=== PATIENT | female | born 1980 | race Caucasian/White ===

== ENCOUNTER 2017-06-15 15:07 | Inpatient (IN) ==
[2017-06-15] MEDS ORDERED: *HR* HYDROmorphone 2 MG/ML SYRINGE IVP PRN (16:45)
[2017-06-15] MEDS ORDERED: Ondansetron 4 MG/2 ML VIAL IVP PRN (16:47)
[2017-06-15] MEDS ORDERED: *HR* Promethazine 25 MG/ML VIAL IVP PRN ×2 (16:48→22:46)
[2017-06-15] MEDS ORDERED: Ringers Solution, Lactated 500 ML IVC ONE (16:55)
[2017-06-15] MEDS: Ringers Solution, Lactated 1,000 ML IVC SCH (18:45)
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
--- NOTE | 2017-06-15 21:45 | Anesthesia Evaluation PreOp ---
Date of Encounter: 06/15/17 Time of Encounter: 22:43 - Past History Planned Operation: lap magaly Cardiac History: HTN, Other (chronic anmeia) Pulmonary History: Snore MOLD RUNNER History: Other (anxiety/depression) Other Medical History: Renal (stones), GERD, Other (follicular lymphoma, cholelithiasis chronic) Anesthesia History: No Prior Anesthetic Complications, Past Anesthesia (pnl l breast, exp celiotomy, r foot, r femur) Test: Negative Alcohol Use: occasionally Drug use: none Medications and Allergies Esomeprazole Magnesium [Nexium] 40 mg PO DAILY 01/31/16 [History] FLUoxetine HCl [Sarafem] 10 mg PO DAILY 01/31/16 [History] Losartan Potassium [Cozaar] 100 mg PO DAILY 01/31/16 [History] Loratadine [Claritin] 10 mg PO DAILY #30 capsule 02/02/17 [Rx] Ondansetron HCl [Zofran] 8 mg PO Q8H PRN 06/15/17 [History] Allergies No Known Allergies Allergy (Verified 05/07/17 10:31) - Meds/Allergy Pre-op Review Medications Reviewed: Yes Allergies Reviewed: Yes Beta Blockers on Current Med List: No Anesthesia Results - Labs Laboratory Tests 01/29/17 06/14/17 13:07 12:38 Hgb 13.1 Hct 40.1 Plt Count 268 Sodium 138 Potassium 3.7 Creatinine 0.78 Anesthesia Exam Vital Signs/O2 Sat/Glucose, Most Current Temp Pulse Resp BP Pulse Ox 06/15/17 19:48 98.0 F 67 16 111/74 100 Height: 1.7 Weight: 102 NPO (# of Hours): >8 - HEENT Pupil (Motor): Pupils equal, EOMI Mallampati: II Teeth: Normal Oral Opening: Greater than 3 (good underbite) - MOLD RUNNER LOC: Oriented MOLD RUNNER Motor: Normal RUE, Normal LUE, Normal RLE, Normal LLE, Normal Face MOLD RUNNER Sensory: Normal: RUE, LUE, RLE, LLE, Face - Cardiac Rhythm: Regular Murmur: None - Pulmonary Breath Sounds: bilateral Clear Respiratory Effort: Symmetrical Anesthesia Assess/Plan ASA Score: 2 Modified [place] Scale for Level of Consciousness: Cooperative, oriented, and tranquil Anesthetic Plan: General Monitoring Plan: Standard Monitors Recovery Plan: PACU
[2017-06-15] MEDS ORDERED: *HR* Midazolam HCl 2 MG/2 ML VIAL ONE (21:52)
[2017-06-15] MEDS ORDERED: *HR* FentaNYL (PF) 100 MCG/2 ML VIAL ONE ×2 (21:52→23:33)
[2017-06-15] MEDS ORDERED: *HR* Propofol 200 MG/20 ML VIAL IVP ONE (21:52)
[2017-06-15] MEDS ORDERED: Dexamethasone 4 MG/ML VIAL ONE (21:54)
[2017-06-15] MEDS ORDERED: Ondansetron 4 MG/2 ML VIAL ONE (21:54)
[2017-06-15] MEDS ORDERED: *HR* Rocuronium Bromide 50 MG/5 ML VIAL ONE ×2 (21:54→23:58)
[2017-06-15] MEDS ORDERED: Lidocaine -MPF 2% 2 ML VIAL ONE (21:54)
[2017-06-15] MEDS ORDERED: Bupivacaine/EPI 1:200k 0.25%PF 10 ML VIAL INFILT ONE (22:14)
[2017-06-15] MEDS ORDERED: Ketorolac 30 MG/ML VIAL ONE (23:28)
[2017-06-16] MEDS ORDERED: Neostigmine Methylsulfate 3 MG/3 ML SYRINGE ONE (00:23)
[2017-06-16] MEDS ORDERED: Ringers Solution, Lactated 500 ML IVC ONE ×3 (00:47→14:45)
[2017-06-16] MEDS ORDERED: Acetaminophen IV 1,000 MG/100 ML INFUS..BTL IVPB ONE (00:47)
[2017-06-16] MEDS: *HR* HYDROmorphone (PF) 1 MG/ML SYRINGE IVP PRN ×6 (00:53→23:24)
--- NOTE | 2017-06-16 00:59 | Operative Note ---
Date of procedure: 06/16/17 Pre-op diagnosis: cholecystitis, cholelithiasis Post-op diagnosis: same Procedure: laparoscopic cholecystectomy Complications: none apparent Anesthesia: GETA Local Anesthetics: 0.25% Sensorcaine HCL with Epinephrine 1:200,000 SubQ (cc) ( 20mL) Surgeon: Toro Escoto Estimated blood loss (cc): 10 IV fluids (cc): 700 Specimen: gallbladder Condition: stable Disposition: PACU Procedure in Detail: The patient was brought to the operating room where she was placed supine upon the operating room table. The patient was appropriately identified as to person and procedure. The accuracy of this information was confirmed by the procedure team. The patient was then intubated and anesthetized under the supervision of Dr. Guillermo Stanton. The abdomen was prepped and draped in usual sterile fashion. Due to her history of previous open celiotomy for mesenteric lymph node biopsy, the initial laparoscopic approach was in the right upper quadrant, midclavicular line. Just caudal to the costal margin, several milliliters of 0.25% bupivacaine with 1-200,000 epinephrine was infiltrated. A small transverse incision was made. A 5 mm Xcel port was established. The rigid laparoscope was placed within the obturator to visualize passage through the layers of the anterior abdominal wall. Once abdominal cavity was accessed, the obturator was replaced by the rigid laparoscope. The abdomen was insufflated with gaseous carbon dioxide. There was no obvious visible injury from placing the port. There was a small segment of omentum adherent to the anterior abdominal wall but these adhesions would be easily circumvented. Under direct visualization a suprapubic port was placed. The rigid laparoscope was then shifted to this location to visualize placement of the remaining ports along the right costal margin in the subxiphoid and anterior axillary line. All port sites were infiltrated with bupivacaine with epinephrine. The gallbladder was grasped and retracted. Inflammation was noted near the infundibulum of the gallbladder. The duodenum was mobilized away from the infundibulum and dissection proceeded to identify the cystic duct. The cystic duct was skeletonized and clipped. The cystic duct was divided with the aid of an Ethicon harmonic shobha. The cystic artery was then identified, clipped twice proximally, once distally and divided. The gallbladder was dissected from the liver bed using the Ethicon harmonic shobha. Once from the liver bed, the gallbladder was placed in an endoscopic pouch and removed through the supraumbilical port. Several large stones were evident within the gallbladder. The specimen was collected and sent to pathology. The liver bed was inspected for adequate hemostasis. Once this was assured, the pneumoperitoneum was evacuated, the instrumentation removed. The fascia of the supraumbilical port was closed with an interrupted [id number] of 0 Vicryl using S retractors. The port sites were closed with subcuticular 4-0 Vicryl. The incisions were sealed with Dermabond dermal adhesive. The patient was taken to recovery in stable condition. Needle, sponge, and instrument counts were correct at the close of the case. Total volume of 0.25% bupivacaine with 1-200,000 units epinephrine used during this procedure, 20 mL.
--- NOTE | 2017-06-16 01:18 | Anesthesia Evaluation Post Op ---
Date of Encounter: 06/16/17 Time of Encounter: 01:18 - Vital Signs Vital Signs: Vital Signs/O2 Sat/Glucose, Most Current Temp Pulse Resp BP Pulse Ox 06/16/17 01:13 97.1 F L 60 16 112/65 100 06/16/17 01:03 61 16 110/67 97 06/16/17 00:53 76 16 112/71 96 06/16/17 00:43 97.7 F 95 14 130/47 98 - Lungs Lungs: Clear Ascult./Percussion - Airway Airway: Non-obstructed - Cardiovascular Regular Rate - Mental Status Mental Status: Alert & Oriented, Answers Appropriately - Pain Pain Scale: 2 - Nausea Vomiting Nausea Vomiting: Not Present - Hydration Hydration: NPO - Discharge PostOp Status: Transfer Patient to floor
[2017-06-16] MEDS: Ringers Solution, Lactated 1,000 ML IVC SCH ×4 (01:25→22:15)
[2017-06-16] MEDS ORDERED: *HR* HYDROmorphone (PF) 1 MG/ML SYRINGE IVP PRN (01:34)
[2017-06-16] MEDS ORDERED: Acetaminophen 325 MG TABLET PO PRN (01:34)
[2017-06-16] MEDS: Ondansetron 4 MG/2 ML VIAL IVP PRN ×3 (01:52→13:45)
[2017-06-16] MEDS ORDERED: *HR* HYDROmorphone (PF) 1 MG/ML SYRINGE IVP ONE (02:33)
[2017-06-16] MEDS: *HR* OxyCODONE/APAP 5/325 TABLET PO PRN ×3 (02:58→17:27)
[2017-06-16 13:45] LABS: Alanine Aminotransferase 35 Units/L (0-55); Albumin 3.5 g/dL (3.5-5.0); Alkaline Phosphatase 113 Units/L (38-126); Aspartate Amino Transferase 37 Units/L (5-34); BUN/Creatinine Ratio 14 (6-26); Blood Urea Nitrogen 11 mg/dL (7-20); Calcium 9.2 mg/dL (8.6-10.8); Carbon Dioxide 22 mEq/L (19-29); Chloride 107 mEq/L (98-109); Globulin 3.6 g/dL (2.4-3.5); Glucose 124 mg/dL (70-99); Osmolality,Calculated 283 (280-300); Potassium 4.3 mEq/L (3.5-4.5); Sodium 136 mEq/L (136-145); Total Protein 7.1 g/dL (6.0-8.3); eGFR For African Americans > 60 (> 60); eGFR For Non-African Americans > 60 (> 60)
[2017-06-16 13:48] LABS: Bilirubin,Total 0.8 mg/dL (0.2-1.2)
[2017-06-16 13:50] LABS: Basophils % 0.1 %; Hematocrit 39.4 % (35.3-44.9); Hemoglobin 12.9 g/dL (11.5-15.4); Immature Granulocytes % 0.3 % (0-4); Lymphocytes % 6.8 %; Mean Corpuscular HGB Conc 32.7 g/dL (31.6-35.5); Mean Corpuscular Hemoglobin 27.7 pg (28.0-33.3); Mean Corpuscular Volume 84.7 fL (83.0-100.0); Mean Platelet Volume 10.2 fL (9.4-12.4); Monocytes # 0.7 K/mcL (0.0-1.3); Monocytes % 4.9 %; Neutrophils # 12.9 K/mcL (1.6-8.9); Platelet Count 265 K/mcL (140-400); Red Blood Count 4.65 M/mcL (3.82-4.97); Red Cell Distribution Width 12.8 % (11.5-14.5); Segmented Neutrophils % 87.9 %
[2017-06-16] MEDS ORDERED: Ketorolac 30 MG/ML VIAL IVP ONE (14:39)
--- NOTE | 2017-06-16 15:10 | General Surgery Progress Note ---
Date of Encounter: 06/16/17 Time of Encounter: 15:05 Subjective Narrative: General Surgery - post op Patient complaining of right flank pain and "spasms" Patient has been afebrile, currently 98.1, pulse 67, respirations 14, blood pressure 130/78. Lungs: Clear to auscultation, moderately good inspiratory effort Cardiac: Regular rate Abdomen: Port sites clean and dry; tenderness right upper quadrant extending to the right flank as expected. Active bowel sounds Tolerating diet, nausea is improved from preoperative state Urine output: 625 mL since surgery Laboratories: White count 14.7, neutrophils elevated to 12.9% - likely reaction to surgery Hemoglobin 12.9, hematocrit 39.4, platelet count 265,000 Electrolytes, BUN, creatinine within normal limits. Total bili 0.8; AST 37, alkaline phosphatase 113, ALT 35. Preoperative alkaline phosphatase 139. Impression: Acute cholecystitis cholelithiasis - status post laparoscopic cholecystectomy Acceptable postoperative state with postoperative right upper quadrant and right flank pain. We will trial Toradol. Also provide additional fluid bolus for symptomatic control of the patient's complaints Objective Vital Signs - Last 8 Hours Temp Pulse Resp BP Pulse Ox 06/16/17 11:54 98.1 F 67 14 130/78 95 Intake and Output 06/15/17 06/16/17 06/16/17 23:59 07:59 15:59 Intake Total 500 / 500 1739 / 1739 601 / 601 Output Total 0 / 0 10 625 / 625 Balance 500 / 500 1729 / 1729 -24 / -24 Intake: IV Fluids 500 / 500 1739 / 1739 361 / 361 Lactated Ringers 1,000 ML 500 / 500 1639 / 1639 361 / 361 @ 125 mls/hr IVC .Q8H [facility] Rx#:[id number] Ofirmev 1,000 mg/100 ml 1 100 / 100 ,000 mg In 100 ml @ 400 mls/hr IVPB ONCE ONE Rx#: [id number] Oral 0 / 0 240 / 240 Output: Urine 0 / 0 625 / 625 Estimated Blood Loss Other: Meal NPO Lunch Percent of Meal Consumed 0% 5% Weight 102.512 kg - Labs 06/16/17 13:18 06/16/17 13:18 Diabetes panel 06/16/17 Range/Units 13:18 Sodium 136 (136-145) mEq/L Potassium 4.3 (3.5-4.5) mEq/L Chloride 107 (98-109) mEq/L Carbon Dioxide 22 (19-29) mEq/L BUN 11 (7-20) mg/dL Creatinine 0.78 (0.57-1.11) mg/dL Glucose 124 H (70-99) mg/dL Calcium 9.2 (8.6-10.8) mg/dL AST 37 H (5-34) Units/L ALT 35 (0-55) Units/L Alkaline Phosphatase 113 (38-126) Units/L Albumin 3.5 (3.5-5.0) g/dL Calcium panel 06/16/17 Range/Units 13:18 Calcium 9.2 (8.6-10.8) mg/dL Albumin 3.5 (3.5-5.0) g/dL Pituitary panel 06/16/17 Range/Units 13:18 Sodium 136 (136-145) mEq/L Potassium 4.3 (3.5-4.5) mEq/L Chloride 107 (98-109) mEq/L Carbon Dioxide 22 (19-29) mEq/L BUN 11 (7-20) mg/dL Creatinine 0.78 (0.57-1.11) mg/dL Glucose 124 H (70-99) mg/dL Calcium 9.2 (8.6-10.8) mg/dL Adrenal panel 06/16/17 Range/Units 13:18 Sodium 136 (136-145) mEq/L Potassium 4.3 (3.5-4.5) mEq/L Chloride 107 (98-109) mEq/L Carbon Dioxide 22 (19-29) mEq/L BUN 11 (7-20) mg/dL Creatinine 0.78 (0.57-1.11) mg/dL Glucose 124 H (70-99) mg/dL Calcium 9.2 (8.6-10.8) mg/dL Total Bilirubin 0.8 D (0.2-1.2) mg/dL AST 37 H (5-34) Units/L ALT 35 (0-55) Units/L Alkaline Phosphatase 113 (38-126) Units/L Albumin 3.5 (3.5-5.0) g/dL - VTE Documentation of Mechanical Device: Intermittent pneumatic compression device Consult Discharge Plan - Plan Referrals: Kofi Viera MD [Primary Care Provider] - Toro Escoto MD [Non-Partnered Physician] -
[2017-06-17] MEDS: *HR* HYDROmorphone (PF) 1 MG/ML SYRINGE IVP PRN ×7 (02:25→23:48)
[2017-06-17 03:37] LABS: Basophils % 0.2 %; Eosinophils % 0.3 %; Hematocrit 35.6 % (35.3-44.9); Hemoglobin 11.7 g/dL (11.5-15.4); Immature Granulocytes % 0.3 % (0-4); Lymphocytes # 1.5 K/mcL (0.6-4.6); Lymphocytes % 13.2 %; Mean Corpuscular HGB Conc 32.9 g/dL (31.6-35.5); Mean Corpuscular Hemoglobin 28.3 pg (28.0-33.3); Mean Corpuscular Volume 86.2 fL (83.0-100.0); Mean Platelet Volume 10.5 fL (9.4-12.4); Monocytes # 0.9 K/mcL (0.0-1.3); Monocytes % 7.7 %; Neutrophils # 8.9 K/mcL (1.6-8.9); Platelet Count 248 K/mcL (140-400); Red Blood Count 4.13 M/mcL (3.82-4.97); Segmented Neutrophils % 78.3 %
[2017-06-17] MEDS ORDERED: *HR* LORazepam 2 MG/ML VIAL IVP ONE (08:18)
[2017-06-17] MEDS ORDERED: Water for inj. (sterile) 10 ML IV ONE (08:38)
[2017-06-17 08:49] LABS: Albumin 3.1 g/dL (3.5-5.0); Albumin/Globulin Ratio 0.9 (1.1-2.2); Bilirubin,Direct 1.1 mg/dL (0.0-0.5); Bilirubin,Indirect 0.9 mg/dL (0.0-1.2); Globulin 3.6 g/dL (2.4-3.5); Total Protein 6.7 g/dL (6.0-8.3)
--- NOTE | 2017-06-17 10:55 | General Surgery Progress Note ---
Date of Encounter: 06/17/17 Time of Encounter: 10:47 Subjective Patient reports: still having pain Narrative: General Surgery - POD #1 Patient still experiencing sharp, intermittent, stabbing pains right flank. The pain is severe the patient describes difficulty taking a deep breath. No nausea or vomiting, no fevers or chills afebrile, currently 98.1; pulse 75, respirations 18, blood pressure 138/83. SPO2 on room air 98% Lungs: Clear to auscultation when she is able to take a deep breath Cardiac: Regular rate, no appreciable cardiac Abdomen: Right upper quadrant/right flank tenderness. Remainder of the abdomen soft, without obvious tenderness. Active bowel sounds. Urine output 1425 for the last 24 hours; 1075 mL so far today - urine described as dark orange Laboratories: White count has improved to 11.4, hemoglobin 11.7, hematocrit 35.6 ; platelet count 248,000. LFTs significantly abnormal - bilirubin 2.0, direct 1.1; AST 111, ALT 75; alkaline phosphatase 113 Impression: Postoperative day 1, status post laparoscopic cholecystectomy Persistent sharp, intermittent, stabbing pains right upper quadrant, right flank with abnormal LFTs. Possible ureterolithiasis versus common duct stone versus complication from recent laparoscopic cholecystectomy Plan: CT abd/pelvis IV pain control Consult Dr Bai for ERCP if hepatobiliary etiology continues to be suspected. Objective Vital Signs - Last 8 Hours Temp Pulse Resp BP Pulse Ox 06/17/17 06:54 98.1 F 75 18 138/83 98 06/17/17 04:17 98.3 F 83 13 160/90 99 Intake and Output 06/16/17 06/17/17 06/17/17 23:59 07:59 15:59 Intake Total 1120 / 1120 360 / 360 738 / 738 Output Total 800 / 800 1075 / 1075 Balance 320 / 320 -715 / -715 738 / 738 Intake: IV Fluids 1000 / 1000 738 / 738 Lactated Ringers 1,000 ML 1000 / 1000 738 / 738 @ 75 mls/hr IVC .[id number] [facility] Rx#:[id number] Oral 120 / 120 360 / 360 Output: Urine 800 / 800 1075 / 1075 Other: Meal Dinner Percent of Meal Consumed 0% Weight 104.78 kg Patient Weight 06/17/17 23:59 Weight 104.78 kg - Labs 06/17/17 03:01 06/16/17 13:18 Diabetes panel 06/16/17 06/17/17 Range/Units 13:18 04:53 Sodium 136 (136-145) mEq/L Potassium 4.3 (3.5-4.5) mEq/L Chloride 107 (98-109) mEq/L Carbon Dioxide 22 (19-29) mEq/L BUN 11 (7-20) mg/dL Creatinine 0.78 (0.57-1.11) mg/dL Glucose 124 H (70-99) mg/dL Calcium 9.2 (8.6-10.8) mg/dL AST 37 H 111 H (5-34) Units/L ALT 35 75 H (0-55) Units/L Alkaline Phosphatase 113 113 (38-126) Units/L Albumin 3.5 3.1 L (3.5-5.0) g/dL Calcium panel 06/16/17 06/17/17 Range/Units 13:18 04:53 Calcium 9.2 (8.6-10.8) mg/dL Albumin 3.5 3.1 L (3.5-5.0) g/dL Pituitary panel 06/16/17 Range/Units 13:18 Sodium 136 (136-145) mEq/L Potassium 4.3 (3.5-4.5) mEq/L Chloride 107 (98-109) mEq/L Carbon Dioxide 22 (19-29) mEq/L BUN 11 (7-20) mg/dL Creatinine 0.78 (0.57-1.11) mg/dL Glucose 124 H (70-99) mg/dL Calcium 9.2 (8.6-10.8) mg/dL Adrenal panel 06/16/17 06/17/17 Range/Units 13:18 04:53 Sodium 136 (136-145) mEq/L Potassium 4.3 (3.5-4.5) mEq/L Chloride 107 (98-109) mEq/L Carbon Dioxide 22 (19-29) mEq/L BUN 11 (7-20) mg/dL Creatinine 0.78 (0.57-1.11) mg/dL Glucose 124 H (70-99) mg/dL Calcium 9.2 (8.6-10.8) mg/dL Total Bilirubin 0.8 D 2.0 H D (0.2-1.2) mg/dL AST 37 H 111 H (5-34) Units/L ALT 35 75 H (0-55) Units/L Alkaline Phosphatase 113 113 (38-126) Units/L Albumin 3.5 3.1 L (3.5-5.0) g/dL - VTE Documentation of Mechanical Device: Intermittent pneumatic compression device Consult Discharge Plan - Plan Referrals: Kofi Viera MD [Primary Care Provider] - Toro Escoto MD [Non-Partnered Physician] -
[2017-06-17] MEDS: Ringers Solution, Lactated 1,000 ML IVC SCH ×2 (11:17→23:49)
--- NOTE | 2017-06-17 15:55 | General Surgery Progress Note ---
Date of Encounter: 06/17/17 Time of Encounter: 15:49 Subjective Patient reports: feels better Narrative: General Surgery - follow up CT abd/pelvis Patient resting much more comfortably in her hospital bed; Remains afebrile and hemodynamically stable. Heart rate has increased to 101 but for the majority of the day 70-83; respiratory rate 15-18 with no complaints of difficulty breathing or pain on inspiration.; Blood pressure stable 122/79 CT - reviewed; endings include: Minor dependent atelectasis bilaterally in the visualized lung field; previous cholecystectomy with minor fluid in the gallbladder fossa of increased density consistent with a postoperative hematoma or seroma; a minor amount of perihepatic and perisplenic ascites also noted. This is suggestive of a bile leak. If the bile leak ceases spontaneously, no intervention is anticipated. However, if the patient's symptoms persist, or the bile leak continues, the patient may benefit from ERCP and biliary stenting. The brittany hepatic and brittany splenic fluid / bile is consistent with the patient's post op symptoms and complaints difficulty breathing due to diaghramatic irritation. Repeat labs in AM; continue pain meds toda/tonight Objective Vital Signs - Last 8 Hours Temp Pulse Resp BP Pulse Ox 06/17/17 12:47 98.2 F 101 15 122/79 93 Intake and Output 06/16/17 06/17/17 06/17/17 23:59 07:59 15:59 Intake Total 1120 / 1120 360 / 360 1001 / 1001 Output Total 800 / 800 1075 / 1075 Balance 320 / 320 -715 / -715 1001 / 1001 Intake: IV Fluids 1000 / 1000 1001 / 1001 Water for inj. (sterile) 1 / 1 10 ML As IV .[facility] Rx#:[id number] Lactated Ringers 1,000 ML 1000 / 1000 1000 / 1000 @ 75 mls/hr IVC .[id number] [facility] Rx#:[id number] Oral 120 / 120 360 / 360 Output: Urine 800 / 800 1075 / 1075 Other: Meal Dinner Percent of Meal Consumed 0% Weight 104.78 kg Patient Weight 06/17/17 23:59 Weight 104.78 kg - Labs 06/17/17 03:01 06/16/17 13:18 Diabetes panel 06/17/17 Range/Units 04:53 AST 111 H (5-34) Units/L ALT 75 H (0-55) Units/L Alkaline Phosphatase 113 (38-126) Units/L Albumin 3.1 L (3.5-5.0) g/dL Calcium panel 06/17/17 Range/Units 04:53 Albumin 3.1 L (3.5-5.0) g/dL Adrenal panel 06/17/17 Range/Units 04:53 Total Bilirubin 2.0 H D (0.2-1.2) mg/dL AST 111 H (5-34) Units/L ALT 75 H (0-55) Units/L Alkaline Phosphatase 113 (38-126) Units/L Albumin 3.1 L (3.5-5.0) g/dL - VTE Documentation of Mechanical Device: Intermittent pneumatic compression device Consult Discharge Plan - Plan Referrals: Kofi Viera MD [Primary Care Provider] - Toro Escoto MD [Non-Partnered Physician] -
[2017-06-17] MEDS: *HR* OxyCODONE/APAP 5/325 TABLET PO PRN ×2 (16:12→20:59)
[2017-06-18] MEDS: *HR* HYDROmorphone (PF) 1 MG/ML SYRINGE IVP PRN ×4 (02:42→14:32)
[2017-06-18 05:52] LABS: Basophils % 0.6 %; Eosinophils # 0.1 K/mcL (0.0-0.6); Eosinophils % 1.5 %; Hematocrit 34.4 % (35.3-44.9); Hemoglobin 11.2 g/dL (11.5-15.4); Immature Granulocytes % 0.3 % (0-4); Lymphocytes # 1.3 K/mcL (0.6-4.6); Lymphocytes % 19.1 %; Mean Corpuscular HGB Conc 32.6 g/dL (31.6-35.5); Mean Corpuscular Hemoglobin 28.4 pg (28.0-33.3); Mean Corpuscular Volume 87.3 fL (83.0-100.0); Mean Platelet Volume 10.1 fL (9.4-12.4); Monocytes # 0.7 K/mcL (0.0-1.3); Monocytes % 10.6 %; Neutrophils # 4.5 K/mcL (1.6-8.9); Platelet Count 209 K/mcL (140-400); Red Blood Count 3.94 M/mcL (3.82-4.97); Red Cell Distribution Width 13.2 % (11.5-14.5); Segmented Neutrophils % 67.9 %
[2017-06-18 06:03] LABS: Albumin 2.7 g/dL (3.5-5.0); Albumin/Globulin Ratio 0.7 (1.1-2.2); Bilirubin,Indirect 2.2 mg/dL (0.0-1.2); Globulin 3.8 g/dL (2.4-3.5); Total Protein 6.5 g/dL (6.0-8.3)
[2017-06-18 06:04] LABS: Bilirubin,Direct 4.3 mg/dL (0.0-0.5); Bilirubin,Total 6.5 mg/dL (0.2-1.2)
--- NOTE | 2017-06-18 11:27 | Gastroenterology Consult Note ---
<Eva Olivera - Last Filed: 06/18/17 14:31> Date of Encounter: 06/18/17 Time of Encounter: 12:40 - Assessment and plan (1) Bile leak, postoperative Current Visit: Yes Status: Acute Assessment and plan: ERCP with stent placement. - Time Spent With Patient Total time spent is greater than 50% in coordination of care (as documented) at patient's floor/unit and/or counseling patient: less than 15 minutes GI History of Present Illness - Data of Consult Patient: new to practice Consult date: 06/18/17 Requesting Physician: Toro Escoto - Consult Narrative Reason for consult: bile leak s/p magaly History of present illness: Ms. Tellez is a 36 year old female patient of Dr. Pelaez that was admitted with a 3 week hx of diarrhea, nausea, anorexia and progressive malaise. Dx of biliary colic, patient underwent cholecystectomy. Post-op imaging indicates possible bile leak with continuing symptoms, GI consulted for ERCP with stent for suspected bile leak. Patient states she has had symptoms for several weeks, diarrhea following meals, nausea and anorexia. She had the GB removed 2 days ago but remains very symptomatic, with RUQ abdominal discomfort, she noticed herself becoming jaundiced since the surgery as well. Colonoscopy: None noted EGD: None noted Past Med Surg Social Fam HX - Past Medical History Medical history: GERD, hypertension, other Psychiatric history: anxiety, depression - Social History Smoking Status: Unknown if ever smoked Smokeless Tobacco Status: No Alcohol use: occasionally Drug use: none - Gastrointestinal NSAID use: None noted Anticoagulation Use: None noted Number of BM Per Day: daily Gastrointestinal: Present: abdominal pain - Constitutional Constitutional: as per HPI - EENT Eyes: Yellow Discoloration Ears: Present: as per HPI Nose, mouth and throat: Present: as per HPI - Cardiovascular Cardiovascular ROS: Present: as per HPI - Respiratory Respiratory IM: Present: as per HPI - Neurological ROS Neurological GI: Present: as per HPI - Hematologic/Lymphatic Hematologic/Lymphatic pediatric: Present: as per HPI - Musculoskeletal Musculoskeletal ROS GI: Present: as per HPI - Integumentary Integumentary GI: Present: jaundice - Psychiatric ROS Psychiatric GI: Present: as per HPI - Endocrine Endocrine IM: Present: as per HPI - Constitutional Vitals: Temp Pulse Resp BP Pulse Ox 98.2 F 96 16 134/84 96 06/18/17 10:47 06/18/17 10:47 06/18/17 10:47 06/18/17 10:47 06/18/17 10:47 General appearance: Present: cooperative, A&O X 3, no acute distress, answers questions appropriately - Head Head exam: Present: atraumatic, normocephalic - Eye Eye exam: Present: scleral icterus - ENT ENT exam: Present: mucous membranes moist - Neck Neck exam general surgery: Present: normal inspection, trachea midline - Respiratory Respiratory exam: Present: CTAB - Cardiovascular Cardiovascular exam: Present: RRR, +S1, +S2 - GI/Abdominal GI/Abdominal exam: Present: soft, tenderness, no peritoneal signs Additional comments: well adhered lap magaly sites - Rectal Rectal exam: Present: deferred - Extremities Exam Extremities exam: Present: warm - Neurological Exam Neurological exam: Present: no focal deficits - Psychiatric Psychiatric exam: Present: normal affect, normal mood - Skin Additional comments: jaundice Results - Labs CBC & Chem 7: 06/18/17 05:32 06/16/17 13:18 Labs: Last Result Calcium 9.2 mg/dL (8.6-10.8) 06/16/17 13:18 Entire Visit Hgb 11.2 g/dL (11.5-15.4) L 06/18/17 05:32 Hct 34.4 % (35.3-44.9) L 06/18/17 05:32 Total Bilirubin 6.5 mg/dL (0.2-1.2) H D 06/18/17 05:32 AST 169 Units/L (5-34) H 06/18/17 05:32 ALT 193 Units/L (0-55) H 06/18/17 05:32 - Impressions Impressions Abdomen/Pelvis CT 06/17/17 09:31 IMPRESSION: 1. Status post cholecystectomy with small heterogeneous, partially hyperdense fluid collection in the gallbladder fossa likely a postoperative hematoma/seroma. If symptoms persist or progress, nuclear medicine hepatobiliary scintigraphy could be considered to evaluate for bile leak. 2. Small amount of ascites with tiny bubble of intraperitoneal free air likely postsurgical in nature. 3. Other incidental findings include minor dependent atelectasis at the lung bases and an IUD. D/ / Melvin Piper MD / Melvin Piper MD Interpreting Provider: Melvin Piper MD Consult Discharge Plan - Plan Referrals: Kofi Viera MD [Primary Care Provider] - Toro Escoto MD [Non-Partnered Physician] - <Shirley Bai - Last Filed: 06/18/17 17:32> Date of Encounter: 06/18/17 Time of Encounter: 15:00 - Time Spent With Patient Total time spent is greater than 50% in coordination of care (as documented) at patient's floor/unit and/or counseling patient: GI History of Present Illness - Data of Consult Requesting Physician: Toro Escoto - Consult Narrative History of present illness: Ms. Tellez is a 36 year old female - Constitutional Vitals: Temp Pulse Resp BP Pulse Ox 99.5 F 98 16 124/77 95 06/18/17 14:23 06/18/17 14:23 06/18/17 14:23 06/18/17 14:23 06/18/17 14:23 Results - Labs CBC & Chem 7: 06/18/17 05:32 06/16/17 13:18 Labs: Last Result Calcium 9.2 mg/dL (8.6-10.8) 06/16/17 13:18 Entire Visit Hgb 11.2 g/dL (11.5-15.4) L 06/18/17 05:32 Hct 34.4 % (35.3-44.9) L 06/18/17 05:32 Total Bilirubin 6.5 mg/dL (0.2-1.2) H D 06/18/17 05:32 AST 169 Units/L (5-34) H 06/18/17 05:32 ALT 193 Units/L (0-55) H 06/18/17 05:32 - Attending Attestation I examined this patient and my medical decision-making was reviewed with the Resident Physician. I agree with the documented findings, disposition and treatment plan as described except to the extent set forth below. Pt With the status post cholecystectomy now with jaundice. had Stones in the gallbladder, r/u CBD OBSTRUCTION due to stone
--- NOTE | 2017-06-18 12:25 | General Surgery Progress Note ---
Date of Encounter: 06/18/17 Time of Encounter: 12:21 Subjective Patient reports: still having pain (bilirubin and LFTs continue to rise) Narrative: General Surgery - POD #2 - this is a delayed dictation The patient is still complaining of pain though control is much improved with frequent IV administration hydromorphone No fever, maximum temperature 99.0, heart rate 96-104, respirations 16, blood pressure 134/84. Lungs: Clear Abdomen: Soft, active bowel sounds. Port sites clean and dry Laboratories: White count is returning to normal, 6.6; hemoglobin 11.2, hematocrit 34.4, platelet count 209,000 Bilirubin 6.5, with direct 4.3; AST 169, ALT 193, alkaline phosphatase 211 - all values significantly increased from the day before Impression: Obstructive jaundice secondary to common duct stone or intraoperative ductal injury. Dr Bai as been contacted/consulted for ERCP Patient is aware. Objective Vital Signs - Last 8 Hours Temp Pulse Resp BP Pulse Ox 06/18/17 10:47 98.2 F 96 16 134/84 96 06/18/17 09:05 120/85 06/18/17 06:56 99.0 F 101 16 104/66 94 Intake and Output 06/17/17 06/18/17 06/18/17 23:59 07:59 15:59 Intake Total 2320 / 2320 0 / 0 Output Total 2250 / 2250 1050 / 1050 Balance 70 / 70 -1050 / -1050 Intake: IV Fluids 1000 / 1000 Lactated Ringers 1,000 ML 1000 / 1000 @ 75 mls/hr IVC .[id number] [facility] Rx#:[id number] Oral 1320 / 1320 0 / 0 Output: Urine 2250 / 2250 1050 / 1050 Other: Meal Dinner NPO NPO Percent of Meal Consumed 25% Weight 105.097 kg Blood Glucose* 107 95 Patient Weight 06/18/17 23:59 Weight 105.097 kg - Labs 06/18/17 05:32 06/16/17 13:18 Diabetes panel 06/18/17 Range/Units 05:32 AST 169 H (5-34) Units/L ALT 193 H (0-55) Units/L Alkaline Phosphatase 211 H (38-126) Units/L Albumin 2.7 L (3.5-5.0) g/dL Calcium panel 06/18/17 Range/Units 05:32 Albumin 2.7 L (3.5-5.0) g/dL Adrenal panel 06/18/17 Range/Units 05:32 Total Bilirubin 6.5 H D (0.2-1.2) mg/dL AST 169 H (5-34) Units/L ALT 193 H (0-55) Units/L Alkaline Phosphatase 211 H (38-126) Units/L Albumin 2.7 L (3.5-5.0) g/dL - VTE Documentation of Mechanical Device: Intermittent pneumatic compression device Consult Discharge Plan - Plan Referrals: Kofi Viera MD [Primary Care Provider] - Toro Escoto MD [Non-Partnered Physician] -
[2017-06-18] MEDS: *HR* OxyCODONE/APAP 5/325 TABLET PO PRN ×2 (12:39→22:43)
--- NOTE | 2017-06-18 18:19 | Anesthesia Evaluation PreOp ---
Date of Encounter: 06/18/17 Time of Encounter: 18:17 - Past History Planned Operation: ERCP Cardiac History: HTN, Other (anemia) Pulmonary History: Denies Any Significant HX LOGGING OPERATIONS INSPECTOR History: Denies Any Significant HX Other Medical History: Renal (stones), GERD, Other (follicular lymphoma) Anesthesia History: No Prior Anesthetic Complications Alcohol Use: occasionally Drug use: none Medications and Allergies Esomeprazole Magnesium [Nexium] 40 mg PO DAILY 01/31/16 [History] FLUoxetine HCl [Sarafem] 10 mg PO DAILY 01/31/16 [History] Losartan Potassium [Cozaar] 100 mg PO DAILY 01/31/16 [History] Loratadine [Claritin] 10 mg PO DAILY #30 capsule 02/02/17 [Rx] Ondansetron HCl [Zofran] 8 mg PO Q8H PRN 06/15/17 [History] Allergies No Known Allergies Allergy (Verified 05/07/17 10:31) - Meds/Allergy Pre-op Review Medications Reviewed: Yes Allergies Reviewed: Yes Beta Blockers on Current Med List: No Anesthesia Results - Labs 06/18/17 05:32 06/16/17 13:18 Anesthesia Exam Last Vital Signs Temp 99.5 F 06/18/17 14:23 Pulse 98 06/18/17 14:23 Resp 16 06/18/17 14:23 BP 124/77 06/18/17 14:23 Pulse Ox 95 06/18/17 14:23 Weight: 105 kg NPO (# of Hours): >> 8 hrs - HEENT Pupil (Motor): Pupils equal, EOMI Mallampati: I Teeth: Normal Oral Opening: Greater than 3 - LOGGING OPERATIONS INSPECTOR LOC: Oriented LOGGING OPERATIONS INSPECTOR Motor: Normal RUE, Normal LUE, Normal RLE, Normal LLE, Normal Face - Cardiac Rhythm: Regular Murmur: None - Pulmonary Breath Sounds: bilateral Clear Respiratory Effort: Symmetrical Anesthesia Assess/Plan ASA Score: 2 Modified [place] Scale for Level of Consciousness: Cooperative, oriented, and tranquil Anesthetic Plan: General Monitoring Plan: Standard Monitors Recovery Plan: PACU
[2017-06-18] MEDS ORDERED: Scopolamine Patch 1.5 MG PATCH.TD72 TD ONE (18:20)
[2017-06-18] MEDS ORDERED: *HR* Propofol 200 MG/20 ML VIAL IVP ONE (18:28)
[2017-06-18] MEDS ORDERED: *HR* FentaNYL (PF) 100 MCG/2 ML VIAL ONE (18:28)
[2017-06-18] MEDS ORDERED: Ondansetron 4 MG/2 ML VIAL ONE (18:28)
[2017-06-18] MEDS ORDERED: *HR* Midazolam HCl 2 MG/2 ML VIAL ONE (18:28)
[2017-06-18] MEDS ORDERED: *HR* Rocuronium Bromide 50 MG/5 ML VIAL ONE (18:28)
[2017-06-18] MEDS ORDERED: Lidocaine -MPF 2% 2 ML VIAL ONE (18:28)
[2017-06-18] MEDS ORDERED: Ringers Solution, Lactated 1,000 ML IVC SCH (18:45)
[2017-06-18] MEDS ORDERED: Indomethacin 50 MG SUPP.RECT RC ONE (19:14)
[2017-06-18] MEDS ORDERED: Dexamethasone 4 MG/ML VIAL ONE (19:28)
[2017-06-18] MEDS ORDERED: *HR* Morphine 2 MG/ML SYRINGE IVP PRN (20:06)
[2017-06-18] MEDS ORDERED: *HR* Promethazine 25 MG/ML VIAL IVP PRN (20:06)
--- NOTE | 2017-06-18 21:02 | Anesthesia Evaluation Post Op ---
Date of Encounter: 06/18/17 Time of Encounter: 21:02 - Vital Signs Vital Signs: Vital Signs/O2 Sat, Most Current Temp Pulse Resp BP Pulse Ox 98 F 104 20 129/82 93 06/18/17 21:01 06/18/17 21:01 06/18/17 21:01 06/18/17 21:01 06/18/17 21:01 - Lungs Lungs: Clear Ascult./Percussion - Airway Airway: Non-obstructed - Cardiovascular Regular Rate - Mental Status Mental Status: Asleep with brisk response to light stimulation - Pain Pain Scale: 0 Pain Scale used: Numeric (1 - 10) - Nausea Vomiting Nausea Vomiting: Not Present - Hydration Hydration: NPO, Has not voided - Discharge PostOp Status: Transfer Patient to floor
[2017-06-18] MEDS ORDERED: Sod Borate/Boric acid/NaCl 118 ML IRRIG.SOLN OP ONE (21:50)
--- NOTE | 2017-06-18 22:02 | Event Note ---
Date of Encounter: 06/18/17 Time of Encounter: 21:15 Called to the OR by Dr Bai during ERCP. on my arrival the ERCP was in progress. Findings include normal-appearing distal common duct, no contrast beyond the mid common bile duct or mid common hepatic duct. Attempts to pass a wire beyond this point failed and on administration of contrast extraluminal contrast was identified. The findings are consistent with occlusion of the mid common bile duct or mid hepatic duct with clip or clips related to recent laparoscopic cholecystectomy. These findings were discussed with the patient's family and ultimately with the patient as she recovered from anesthesia. I have recommended transfer to a [facility], specifically [facility]. The patient was willing to be transferred. [facility] has been contacted. I am currently awaiting a response from the Surgeon prototype assembler electronics regarding this transfer The patient remains afebrile, currently 98; pulse is elevated at 104, respiratory 20, blood pressure 129/82. SPO2 on room air 93-94% The patient is now clinically jaundiced. Total bilirubin known to be 6.5 with a direct of 4.3. Lungs: Clear Abdomen: Soft with minimal tenderness. No obvious intra-abdominal masses or rebound. Impression: Obstructive jaundice secondary to iatrogenic injury to the mid common bile duct or mid common hepatic duct. Likely a clip placed during laparoscopic cholecystectomy is causing this obstruction.
[2017-06-19] MEDS: Ringers Solution, Lactated 1,000 ML IVC SCH ×3 (07:17→08:08)
[2017-06-19 09:40] LABS: Basophils % 0.1 %; Eosinophils % 0.3 %; Hematocrit 34.4 % (35.3-44.9); Hemoglobin 11.2 g/dL (11.5-15.4); Immature Granulocytes % 0.4 % (0-4); Lymphocytes # 0.7 K/mcL (0.6-4.6); Lymphocytes % 8.6 %; Mean Corpuscular HGB Conc 32.6 g/dL (31.6-35.5); Mean Corpuscular Hemoglobin 27.5 pg (28.0-33.3); Mean Corpuscular Volume 84.5 fL (83.0-100.0); Mean Platelet Volume 10.4 fL (9.4-12.4); Monocytes # 0.5 K/mcL (0.0-1.3); Monocytes % 6.7 %; Neutrophils # 6.6 K/mcL (1.6-8.9); Platelet Count 246 K/mcL (140-400); Red Blood Count 4.07 M/mcL (3.82-4.97); Red Cell Distribution Width 13.1 % (11.5-14.5); Segmented Neutrophils % 83.9 %
[2017-06-19 09:41] LABS: Bilirubin,Total 5.6 mg/dL (0.2-1.2)
--- NOTE | 2017-06-19 16:12 | Event Note ---
Date of Encounter: 06/19/17 Time of Encounter: 16:00 Patient is status post laparoscopic cholecystectomy with Dr. Escoto on 2015. She is status post-ERCP with Dr. Bai on 06/18/2017. Postoperative complication includes common bile duct injury. The patient has requested a consult to Dr. Gay for evaluation and treatment. An MRCP has been complete today and reviewed per Dr. Gay. We will plan to give the patient clear liquid diet today and make her nothing by mouth after midnight. Interventional radiology has been consulted for placement of a PTC catheter 06/20/17. Interventional radiologist has been notified per Dr. Gay. The plan has been reviewed with the patient and she is in agreement to proceed with Dr. Gay's recommendations. We will continue to follow and make recommendations for treatment.
--- NOTE | 2017-06-19 18:53 | General Surgery Progress Note ---
Date of Encounter: 06/19/17 Time of Encounter: 14:00 Subjective Patient reports: feels better, pain is less Narrative: General Surgery - POD #3 This a delayed note The patient feels better, pain persists but is diminished. No fevers, chills , nausea or vomiting. At the patient's request, the transfer to [facility] has been delayed. Consultation with Dr Deidra naylor. MRCP completed this afternoon was reviewed with [facility] -Findings include visualization of the left and right hepatic ducts but no visualized common hepatic duct. It appears that the common hepatic duct was resected at the time of the laparoscopic cholecystectomy to the hepatic bifurcation. The common bile duct was not visualized on the MRI but was visualized during the ERCP. These findings were discussed with the patient. On exam the patient appears to be in NAD. The patient has remained afebrile , 98.6, pulse ranging 75-92, respirations 19, blood pressure 113/73. Lungs were clear to auscultation without obvious pain on deep inspiration Abdomen: Soft with minimal right upper quadrant tenderness. Bowel sounds present. A.m. labs: White count 7.9, hemoglobin stable at 11.2, hematocrit 34.4. Differential within normal limits Total bilirubin 5.6 (previously 6.5); AST 86 (previously 169); ALT 151 ( previously 193); alkaline phosphatase 226 (previously 211) Impression/Plan: POD #3 status post laparoscopic cholecystectomy complicated by injury to either the common bile duct or common hepatic duct patient scheduled for percutaneous PTC catheter in AM per Interventional Radiology continue pain control as needed. Repeat labs in AM Objective Vital Signs - Last 8 Hours Temp Pulse Resp BP Pulse Ox 06/19/17 14:50 98.6 F 92 19 113/73 96 06/19/17 10:47 98.4 F 87 16 104/65 94 Intake and Output 06/19/17 06/19/17 06/19/17 07:59 15:59 23:59 Intake Total 480 / 480 1000 / 1000 Output Total 800 / 800 Balance -320 / -320 1000 / 1000 Intake: IV Fluids 1000 / 1000 Lactated Ringers 1,000 ML 1000 / 1000 @ 75 mls/hr IVC .[id number] [facility] Rx#:[id number] Oral 480 / 480 0 / 0 Output: Urine 800 / 800 Other: Meal NPO Weight 105.3 kg Blood Glucose* 79 89 Patient Weight 06/19/17 23:59 Weight 105.3 kg - Labs 06/19/17 08:49 06/16/17 13:18 Diabetes panel 06/19/17 Range/Units 08:49 AST 86 H (5-34) Units/L ALT 151 H (0-55) Units/L Alkaline Phosphatase 226 H (38-126) Units/L Adrenal panel 06/19/17 Range/Units 08:49 Total Bilirubin 5.6 H (0.2-1.2) mg/dL AST 86 H (5-34) Units/L ALT 151 H (0-55) Units/L Alkaline Phosphatase 226 H (38-126) Units/L - VTE Documentation of Mechanical Device: Intermittent pneumatic compression device Consult Discharge Plan - Plan Referrals: Kofi Viera MD [Primary Care Provider] - Toro Escoto MD [Non-Partnered Physician] -
[2017-06-20] MEDS: Ringers Solution, Lactated 1,000 ML IVC SCH (00:13)
[2017-06-20 03:38] LABS: INR 1.3; Prothrombin Time 13.8 Seconds (9.4-12.1)
[2017-06-20 03:45] LABS: BUN/Creatinine Ratio 10 (6-26); Blood Urea Nitrogen 6 mg/dL (7-20); Calcium 8.1 mg/dL (8.6-10.8); Carbon Dioxide 23 mEq/L (19-29); Chloride 108 mEq/L (98-109); Glucose 114 mg/dL (70-99); Osmolality,Calculated 284 (280-300); Potassium 3.2 mEq/L (3.5-4.5); Sodium 138 mEq/L (136-145); eGFR For African Americans > 60 (> 60); eGFR For Non-African Americans > 60 (> 60)
[2017-06-20 03:52] LABS: Bilirubin,Total 5.7 mg/dL (0.2-1.2)
[2017-06-20] MEDS ORDERED: Piperacillin/Tazobactam 3.375 GM in D5% in Water (Mini-Bag+) 100 ML IVPB ONE (10:46)
[2017-06-20] MEDS ORDERED: Heparin 1,000 UNITS/500 mL NS 500 ML ONE (10:53)
[2017-06-20] MEDS ORDERED: 0.9 % Sodium Chloride 500 ML ONE ×2 (11:05→11:21)
[2017-06-20] MEDS: *HR* FentaNYL (PF) 100 MCG/2 ML VIAL IVP PRN ×8 (11:26→12:44)
[2017-06-20] MEDS: *HR* Midazolam HCl 2 MG/2 ML VIAL IVP PRN ×6 (11:26→12:45)
[2017-06-20] MEDS ORDERED: 0.9 % Sodium Chloride 1,000 ML ONE (11:41)
--- NOTE | 2017-06-20 13:17 | IR Procedure Note ---
Date of procedure: 06/20/17 Consent Obtained: Written consent Timeout: Correct patient and procedure verified, Correct site verified, Time out performed, Skin prep completed Local anesthetic: Lidocaine 1% Indications: Bilary injury after cholecystectomy, bile leak Procedure Performed: PTC, internal/external biliary drain placement Site/Technique: Right flank access with accustick. 10fr internal/external drain placed. Results/Findings: Draining well. Leak identified on drain injection. Estimated blood loss (cc): 3 Complications: None; Tolerated procedure well Post Procedure Treatment Plan: Recommend upsizing drain soon, and keep in place for 2-3 months.
--- NOTE | 2017-06-20 14:36 | General Surgery Progress Note ---
Date of Encounter: 06/20/17 Time of Encounter: 14:26 Subjective Patient reports: feels better Narrative: General Surgery - POD #4 Successful placement of 10-Austrian internal/external drain by Steph Ch[facility]ol[facility] Interventional Radiology traversing the injured segment of the biliary tree with the drain extended into the small bowel. Patient is currently well, voicing no complaints Patient is afebrile, 98.3, pulse 74, respirations 14, blood pressure 137/79 The external portion of the drain, attached to a drainage bag, is draining clear, helen bile. Lungs clear abd: soft, non tender with active bowel sounds Plan: allow drainage both internal and external today cap external drain tomorrow allow regular diet repeat labs in AM Objective Vital Signs - Last 8 Hours Temp Pulse Resp BP Pulse Ox 06/20/17 13:24 98.3 F 74 14 137/79 98 06/20/17 12:57 85 16 131/72 97 06/20/17 12:47 85 15 139/82 96 06/20/17 12:42 88 16 136/76 95 06/20/17 12:37 87 17 149/84 95 06/20/17 12:35 87 18 136/69 97 06/20/17 12:30 85 21 133/73 96 06/20/17 12:25 89 23 136/81 96 06/20/17 12:17 88 20 136/73 95 06/20/17 12:13 89 14 140/77 96 06/20/17 12:07 75 20 133/75 100 06/20/17 12:03 80 19 135/79 100 06/20/17 11:57 87 20 143/71 100 06/20/17 11:52 86 19 142/73 98 06/20/17 11:50 85 19 132/73 96 06/20/17 11:42 88 16 116/65 98 06/20/17 11:37 88 19 124/71 96 06/20/17 11:32 77 12 121/69 95 06/20/17 11:27 83 16 123/72 96 06/20/17 11:16 86 13 142/85 06/20/17 06:43 98.7 F 73 16 129/76 94 Intake and Output 06/19/17 06/20/17 06/20/17 23:59 07:59 15:59 Intake Total 1000 / 1000 0 / 0 Output Total 0 / 0 0 / 0 Balance 1000 / 1000 0 / 0 Intake: IV Fluids 1000 / 1000 Lactated Ringers 1,000 ML 1000 / 1000 @ 75 mls/hr IVC .[id number] [facility] Rx#:[id number] Oral 0 / 0 0 / 0 Output: Urine 0 / 0 Wound Drainage 0 / 0 Right Upper Abdomen 0 / 0 Other: Meal NPO Percent of Meal Consumed 0% Weight 107.501 kg Blood Glucose* 89 110 Patient Weight 06/20/17 23:59 Weight 107.501 kg - Labs 06/19/17 08:49 06/20/17 03:08 Diabetes panel 06/20/17 06/20/17 Range/Units 03:08 03:08 Sodium 138 (136-145) mEq/L Potassium 3.2 L (3.5-4.5) mEq/L Chloride 108 (98-109) mEq/L Carbon Dioxide 23 (19-29) mEq/L BUN 6 L (7-20) mg/dL Creatinine 0.63 (0.57-1.11) mg/dL Glucose 114 H (70-99) mg/dL Calcium 8.1 L (8.6-10.8) mg/dL AST 102 H (5-34) Units/L ALT 152 H (0-55) Units/L Alkaline Phosphatase 215 H (38-126) Units/L Calcium panel 06/20/17 Range/Units 03:08 Calcium 8.1 L (8.6-10.8) mg/dL Pituitary panel 06/20/17 Range/Units 03:08 Sodium 138 (136-145) mEq/L Potassium 3.2 L (3.5-4.5) mEq/L Chloride 108 (98-109) mEq/L Carbon Dioxide 23 (19-29) mEq/L BUN 6 L (7-20) mg/dL Creatinine 0.63 (0.57-1.11) mg/dL Glucose 114 H (70-99) mg/dL Calcium 8.1 L (8.6-10.8) mg/dL Adrenal panel 06/20/17 06/20/17 Range/Units 03:08 03:08 Sodium 138 (136-145) mEq/L Potassium 3.2 L (3.5-4.5) mEq/L Chloride 108 (98-109) mEq/L Carbon Dioxide 23 (19-29) mEq/L BUN 6 L (7-20) mg/dL Creatinine 0.63 (0.57-1.11) mg/dL Glucose 114 H (70-99) mg/dL Calcium 8.1 L (8.6-10.8) mg/dL Total Bilirubin 5.7 H (0.2-1.2) mg/dL AST 102 H (5-34) Units/L ALT 152 H (0-55) Units/L Alkaline Phosphatase 215 H (38-126) Units/L - VTE Documentation of Mechanical Device: Intermittent pneumatic compression device Consult Discharge Plan - Plan Referrals: Kofi Viera MD [Primary Care Provider] - Toro Escoto MD [Non-Partnered Physician] -
--- NOTE | 2017-06-20 14:36 | Event Note ---
Date of Encounter: 06/20/17 Time of Encounter: 14:30 Patient seen and evaluated. S/P placement of PTC catheter per interventional radiology this morning. Patient tolerated well. Bilious drainage noted in drain bag. Will continue to follow and assess progress.
[2017-06-20] MEDS: *HR* OxyCODONE/APAP 5/325 TABLET PO PRN (15:06)
[2017-06-20] MEDS: *HR* HYDROmorphone (PF) 1 MG/ML SYRINGE IVP PRN (15:07)
[2017-06-21] MEDS: *HR* OxyCODONE/APAP 5/325 TABLET PO PRN ×2 (03:49→16:15)
[2017-06-21 05:11] LABS: Bilirubin,Total 3.8 mg/dL (0.2-1.2); Potassium 3.6 mEq/L (3.5-4.5)
[2017-06-21] MEDS: Ondansetron 4 MG/2 ML VIAL IVP PRN ×2 (09:13→13:08)
[2017-06-21] MEDS: *HR* HYDROmorphone (PF) 1 MG/ML SYRINGE IVP PRN (12:50)
--- NOTE | 2017-06-21 13:51 | General Surgery Progress Note ---
Date of Encounter: 06/21/17 Time of Encounter: 13:43 Subjective Narrative: General Surgery - POD #5 Status post percutaneous placement internal/external drain. The patient complaining of some discomfort related to this procedure as well as some persisting nausea not relieved by Zofran Copious drainage via this percutaneously placed catheter- it appears approximately 2150 mL Clear bilious fluid has drained since tube placement Low-grade temp 100.1 likely due to this manipulation. Lungs: Clear Abdomen: Tenderness around the drainage tube, as expected Laboratories show correction of hypokalemia to 3.6; bilirubin is improved to 3.8 , AST has increased to 113, ALT has increased to 189, alkaline phosphatase has increased to 250. The elevated LFTs likely due to the manipulation required for placement of the percutaneous transhepatic drain. Impression/Plan: Decompression of the mild duct injury elevated LFTs - likely due to the manipulation required to place the PTC Possible exchange of 10Fr catheter for 16 Fr in AM Low grade fever - monitor, increase pulmonary toilet, activity OOB, check labs including CBC Objective Vital Signs - Last 8 Hours Temp Pulse Resp BP Pulse Ox 06/21/17 11:19 100.1 F H 100 18 135/82 96 06/21/17 07:21 98.6 F 89 16 124/81 96 Intake and Output 06/20/17 06/21/17 06/21/17 23:59 07:59 15:59 Intake Total 600 / 600 Output Total 950 / 950 2024 1625 / 1625 Balance -950 / -950 -1425 / -1425 -1625 / -1625 Intake: Oral 600 / 600 Output: Urine 200 / 200 800 / 800 700 / 700 Other 750 / 750 200 / 200 925 / 925 Wound Drainage 1025 / 1025 Right Upper Abdomen 1025 / 1025 Other: Weight 103.374 kg Patient Weight 06/21/17 23:59 Weight 103.374 kg - Labs 06/19/17 08:49 06/21/17 04:30 Diabetes panel 06/21/17 Range/Units 04:30 Potassium 3.6 (3.5-4.5) mEq/L AST 113 H (5-34) Units/L ALT 189 H (0-55) Units/L Alkaline Phosphatase 250 H (38-126) Units/L Pituitary panel 06/21/17 Range/Units 04:30 Potassium 3.6 (3.5-4.5) mEq/L Adrenal panel 06/21/17 Range/Units 04:30 Potassium 3.6 (3.5-4.5) mEq/L Total Bilirubin 3.8 H (0.2-1.2) mg/dL AST 113 H (5-34) Units/L ALT 189 H (0-55) Units/L Alkaline Phosphatase 250 H (38-126) Units/L - VTE Documentation of Mechanical Device: Intermittent pneumatic compression device Consult Discharge Plan - Plan Referrals: Kofi Viera MD [Primary Care Provider] - Toro Escoto MD [Non-Partnered Physician] -
[2017-06-21] MEDS: *HR* Promethazine 25 MG/ML VIAL IVP PRN (16:15)
[2017-06-22] MEDS: *HR* HYDROmorphone (PF) 1 MG/ML SYRINGE IVP PRN ×4 (00:22→21:45)
[2017-06-22 04:27] LABS: Basophils % 0.2 %; Eosinophils # 0.2 K/mcL (0.0-0.6); Eosinophils % 2.4 %; Hematocrit 35.3 % (35.3-44.9); Hemoglobin 11.3 g/dL (11.5-15.4); Immature Granulocytes % 0.7 % (0-4); Lymphocytes # 1.4 K/mcL (0.6-4.6); Lymphocytes % 14.8 %; Mean Corpuscular Hemoglobin 27.5 pg (28.0-33.3); Mean Corpuscular Volume 85.9 fL (83.0-100.0); Mean Platelet Volume 10.1 fL (9.4-12.4); Monocytes # 0.6 K/mcL (0.0-1.3); Monocytes % 6.2 %; Neutrophils # 7.1 K/mcL (1.6-8.9); Platelet Count 254 K/mcL (140-400); Red Blood Count 4.11 M/mcL (3.82-4.97); Segmented Neutrophils % 75.7 %
[2017-06-22 04:55] LABS: Bilirubin,Total 5.2 mg/dL (0.2-1.2)
[2017-06-22] MEDS: Ondansetron 4 MG/2 ML VIAL IVP PRN ×2 (08:29→13:09)
[2017-06-22] MEDS ORDERED: Heparin 1,000 UNITS/500 mL NS 500 ML ONE (11:08)
[2017-06-22] MEDS ORDERED: 0.9 % Sodium Chloride 1,000 ML ONE (11:52)
[2017-06-22] MEDS ORDERED: Piperacillin/Tazobactam 4.5 GM in D5% in Water (Mini-Bag+) 100 ML IVPB ONE (11:59)
[2017-06-22] MEDS: *HR* Midazolam HCl 2 MG/2 ML VIAL IVP PRN ×5 (12:12→12:24)
[2017-06-22] MEDS: *HR* FentaNYL (PF) 100 MCG/2 ML VIAL IVP PRN ×6 (12:12→12:28)
[2017-06-22] MEDS: *HR* OxyCODONE/APAP 5/325 TABLET PO PRN (13:31)
[2017-06-22] MEDS: Ketorolac 15 MG/ML VIAL IVP SCH ×3 (14:53→23:23)
--- NOTE | 2017-06-22 16:00 | Event Note ---
Date of Encounter: 06/22/17 Time of Encounter: 14:30 Patient s/p upsizing of PTC catheter to 14Fr. Patient complains of diffuse abdominal pain and difficulty taking a deep breath post procedure. Discussed with Dr. Gay and stat portable chest x-ray complete. Reviewed and no evidence of pneumothorax. Medications adjusted for discomfort- increased dilaudid to 1mg every 2 hours and added Toradol scheduled every 6 hours. Added IV fluids at 75ml /hour. Repeat labs in the am. Will continue to follow and assess progress.
--- NOTE | 2017-06-22 22:07 | General Surgery Progress Note ---
Date of Encounter: 06/22/17 Time of Encounter: 22:01 Subjective Patient reports: feels better, still having pain Narrative: General Surgery - Events of today noted. Thanks Dr Gay and Ally Lam, FADY. Patient complaining of increased flank pain following exchange of the PTC increasing the size to 14FR With adjustments to pain meds, patient much more comfortable. Afebrile, 98.4, current pulse 106, respirations 16, minimal pain on deep inspiration, blood pressure 116/78 Lungs: Clear to auscultation Abdomen - soft, active bowel sounds. Port sites clean and healing well. Pathology: Cholelithiasis, chronic cholecystitis Laboratories: White count 9.4, hemoglobin stable at 11.3. Potassium 4.0, total bilirubin has increased to 5.2 with AST 213, ALT 352, alkaline phosphatase 258 - he is likely to respond to the PTC exchange and increase in size Plan: Continue to provide pain control as needed Recheck LFTs in a.m. Discontinue oral potassium Objective Vital Signs - Last 8 Hours Temp Pulse Resp BP Pulse Ox 06/22/17 19:36 98.4 F 106 16 116/78 96 06/22/17 14:54 98.3 F 103 17 116/64 97 Intake and Output 06/22/17 06/22/17 06/22/17 07:59 15:59 23:59 Intake Total 220 / 220 0 / 0 0 / 0 Output Total 1200 / 1200 200 / 200 1300 / 1300 Balance -980 / -980 -200 / -200 -1300 / -1300 Intake: Oral 220 / 220 0 / 0 0 / 0 Output: Urine 300 / 300 200 / 200 0 / 0 Other 350 / 350 Wound Drainage 550 / 550 0 / 0 1300 / 1300 Right Upper Abdomen 550 / 550 0 / 0 1300 / 1300 Other: Meal 1 Jello NPO Dinner Percent of Meal Consumed 100% 75% Weight 103.374 kg Patient Weight 06/22/17 23:59 Weight 103.374 kg - Labs 06/22/17 04:08 06/22/17 04:08 Diabetes panel 06/22/17 Range/Units 04:08 Potassium 4.0 (3.5-4.5) mEq/L AST 213 H (5-34) Units/L ALT 352 H (0-55) Units/L Alkaline Phosphatase 258 H (38-126) Units/L Pituitary panel 06/22/17 Range/Units 04:08 Potassium 4.0 (3.5-4.5) mEq/L Adrenal panel 06/22/17 Range/Units 04:08 Potassium 4.0 (3.5-4.5) mEq/L Total Bilirubin 5.2 H (0.2-1.2) mg/dL AST 213 H (5-34) Units/L ALT 352 H (0-55) Units/L Alkaline Phosphatase 258 H (38-126) Units/L - VTE Documentation of Mechanical Device: Intermittent pneumatic compression device Consult Discharge Plan - Plan Referrals: Kofi Viera MD [Primary Care Provider] - Toro Escoto MD [Non-Partnered Physician] -
[2017-06-23] MEDS: *HR* HYDROmorphone (PF) 1 MG/ML SYRINGE IVP PRN ×4 (02:52→19:57)
[2017-06-23 03:29] LABS: Basophils % 0.2 %; Eosinophils # 0.1 K/mcL (0.0-0.6); Hematocrit 35.2 % (35.3-44.9); Hemoglobin 11.4 g/dL (11.5-15.4); Immature Granulocytes % 0.6 % (0-4); Lymphocytes # 0.6 K/mcL (0.6-4.6); Lymphocytes % 5.5 %; Mean Corpuscular HGB Conc 32.4 g/dL (31.6-35.5); Mean Corpuscular Hemoglobin 27.6 pg (28.0-33.3); Mean Corpuscular Volume 85.2 fL (83.0-100.0); Mean Platelet Volume 10.3 fL (9.4-12.4); Monocytes # 0.4 K/mcL (0.0-1.3); Monocytes % 3.8 %; Neutrophils # 9.7 K/mcL (1.6-8.9); Platelet Count 232 K/mcL (140-400); Red Blood Count 4.13 M/mcL (3.82-4.97); Segmented Neutrophils % 88.9 %
[2017-06-23 04:24] LABS: Alanine Aminotransferase 326 Units/L (0-55); Albumin 2.6 g/dL (3.5-5.0); Albumin/Globulin Ratio 0.6 (1.1-2.2); Alkaline Phosphatase 245 Units/L (38-126); Aspartate Amino Transferase 144 Units/L (5-34); BUN/Creatinine Ratio 13 (6-26); Bilirubin,Direct 5.3 mg/dL (0.0-0.5); Blood Urea Nitrogen 13 mg/dL (7-20); Calcium 9.2 mg/dL (8.6-10.8); Carbon Dioxide 18 mEq/L (19-29); Chloride 106 mEq/L (98-109); Globulin 4.3 g/dL (2.4-3.5); Glucose 123 mg/dL (70-99); Osmolality,Calculated 279 (280-300); Potassium 4.1 mEq/L (3.5-4.5); Sodium 134 mEq/L (136-145); Total Protein 6.9 g/dL (6.0-8.3); eGFR For African Americans > 60 (> 60); eGFR For Non-African Americans > 60 (> 60)
[2017-06-23 04:29] LABS: Bilirubin,Indirect 1.6 mg/dL (0.0-1.2); Bilirubin,Total 6.9 mg/dL (0.2-1.2)
[2017-06-23] MEDS: 0.9 % Sodium Chloride 1,000 ML IVC SCH ×2 (06:14→12:22)
[2017-06-23] MEDS: Ketorolac 15 MG/ML VIAL IVP SCH ×4 (06:15→23:58)
[2017-06-23] MEDS ORDERED: Mag Hydrox/Al Hydrox/Simeth 30 ML UDC PO PRN (11:35)
--- NOTE | 2017-06-23 11:51 | General Surgery Progress Note ---
Date of Encounter: 06/23/17 Time of Encounter: 11:39 Subjective Patient reports: feels better, pain is less Narrative: General Surgery - POD #7 Patient feeling gina, less pain. Thru the night notably tachycardic to 121, Hypotensive to 79/52. Maximum temperature 99.1 Currently afebrile, 98.7; pulse 98, respirations 16, blood pressure 89/56. BP has fluctuated from a low of 79/52 to 109/69 Lungs : diminished breath sounds right base; no noted pain with inspiration Abd: soft, nontender PTC - approx 2375 mL clear bilious fluid in the last 24 hours, 725 mL so far today Laboratories: White count 11.0; hemoglobin 11.4, hematocrit 35.2. Neutrophils have increased to 9.7% but this may be due to the repeated manipulation of the PTC. Electrolytes, BUN, creatinine within an acceptable range Bilirubin has increased to 6.9 with a direct of 5.3; AST is improved to 144, ALT improved to 326, alkaline phosphatase improved to 45. Impression: Postoperative day #7 status post laparoscopic cholecystectomy with injury to the common hepatic duct. Status post placement of percutaneous transhepatic cholangiogram 06/20/17. Change of that catheter for a larger catheter yesterday. Transient hypotension and tachycardia through the night without fever or significant leukocytosis. The symptoms may be due to pain medication. Discussed with Dr. Mueller, CT abdomen and pelvis with IV contrast will be obtained Continue to monitor closely, repeat labs in a.m. Objective Vital Signs - Last 8 Hours Temp Pulse Resp BP Pulse Ox 06/23/17 10:48 98.7 F 98 16 89/56 96 06/23/17 10:00 108 102/66 06/23/17 06:34 98.9 F 104 16 96/63 95 06/23/17 05:24 98.8 F 109 17 93/59 93 06/23/17 04:22 99.0 F 121 18 79/52 93 Intake and Output 06/22/17 06/23/17 06/23/17 23:59 07:59 15:59 Intake Total 0 / 0 120 / 120 600 / 600 Output Total 2074 500 / 500 275 / 275 Balance -2074 / -2074 -380 / -380 325 / 325 Intake: Oral 0 / 0 120 / 120 600 / 600 Output: Urine 250 / 250 0 / 0 50 / 50 Wound Drainage 1824 500 / 500 225 / 225 Right Upper Abdomen 1824 500 / 500 225 / 225 Other: Meal Dinner Breakfast Percent of Meal Consumed 75% 75% # Bowel Movements 1 Weight 103.1 kg Patient Weight 06/23/17 23:59 Weight 103.1 kg - Labs 06/23/17 03:05 06/23/17 04:05 Diabetes panel 06/23/17 Range/Units 04:05 Sodium 134 L (136-145) mEq/L Potassium 4.1 (3.5-4.5) mEq/L Chloride 106 (98-109) mEq/L Carbon Dioxide 18 L (19-29) mEq/L BUN 13 (7-20) mg/dL Creatinine 1.02 (0.57-1.11) mg/dL Glucose 123 H (70-99) mg/dL Calcium 9.2 (8.6-10.8) mg/dL AST 144 H (5-34) Units/L ALT 326 H (0-55) Units/L Alkaline Phosphatase 245 H (38-126) Units/L Albumin 2.6 L (3.5-5.0) g/dL Calcium panel 06/23/17 Range/Units 04:05 Calcium 9.2 (8.6-10.8) mg/dL Albumin 2.6 L (3.5-5.0) g/dL Pituitary panel 06/23/17 Range/Units 04:05 Sodium 134 L (136-145) mEq/L Potassium 4.1 (3.5-4.5) mEq/L Chloride 106 (98-109) mEq/L Carbon Dioxide 18 L (19-29) mEq/L BUN 13 (7-20) mg/dL Creatinine 1.02 (0.57-1.11) mg/dL Glucose 123 H (70-99) mg/dL Calcium 9.2 (8.6-10.8) mg/dL Adrenal panel 06/23/17 Range/Units 04:05 Sodium 134 L (136-145) mEq/L Potassium 4.1 (3.5-4.5) mEq/L Chloride 106 (98-109) mEq/L Carbon Dioxide 18 L (19-29) mEq/L BUN 13 (7-20) mg/dL Creatinine 1.02 (0.57-1.11) mg/dL Glucose 123 H (70-99) mg/dL Calcium 9.2 (8.6-10.8) mg/dL Total Bilirubin 6.9 H (0.2-1.2) mg/dL AST 144 H (5-34) Units/L ALT 326 H (0-55) Units/L Alkaline Phosphatase 245 H (38-126) Units/L Albumin 2.6 L (3.5-5.0) g/dL - VTE Documentation of Mechanical Device: Intermittent pneumatic compression device Consult Discharge Plan - Plan Referrals: Kofi Viera MD [Primary Care Provider] - Toro Escoto MD [Non-Partnered Physician] -
[2017-06-23 12:15] LABS: Amylase 27 Units/L (25-125); Lipase 19 Units/L (8-78)
--- NOTE | 2017-06-23 12:54 | Event Note ---
Date of Encounter: 06/23/17 Time of Encounter: 12:50 CT abdomen and pelvis completed today was reviewed with [facility] Findings include - slight increasing small right and trace left pleural effusions with compressive atelectasis; percutaneous biliary drain terminating in the duodenum, appropriately placed; no change in the mild intrahepatic ductal dilatation; fluid within the gallbladder fossa which has become more homogeneous without significant change in size, measuring 2.4 x 4.1 cm; a few scattered air bubbles within the gallbladder fossa as well as around the portal vein unchanged. A stent is evident within the mid ascending colon, presumably the previously placed pancreatic stent placed during ERCP.
[2017-06-23] MEDS: ceFAZolin 1,000 MG in D5% in Water (Mini-Bag+) 100 ML IVPB SCH ×2 (13:57→21:24)
[2017-06-24] MEDS: 0.9 % Sodium Chloride 1,000 ML IVC SCH ×2 (03:06→15:54)
[2017-06-24 03:41] LABS: Albumin 2.2 g/dL (3.5-5.0); Albumin/Globulin Ratio 0.6 (1.1-2.2); Bilirubin,Direct 4.1 mg/dL (0.0-0.5); Bilirubin,Indirect 1.2 mg/dL (0.0-1.2); Bilirubin,Total 5.3 mg/dL (0.2-1.2); Total Protein 6.2 g/dL (6.0-8.3)
[2017-06-24 03:50] LABS: Basophils % 0.2 %; Eosinophils # 0.2 K/mcL (0.0-0.6); Hematocrit 29.9 % (35.3-44.9); Hemoglobin 9.7 g/dL (11.5-15.4); Immature Granulocytes % 0.9 % (0-4); Lymphocytes % 9.8 %; Mean Corpuscular HGB Conc 32.4 g/dL (31.6-35.5); Mean Corpuscular Hemoglobin 27.8 pg (28.0-33.3); Mean Corpuscular Volume 85.7 fL (83.0-100.0); Monocytes # 0.8 K/mcL (0.0-1.3); Monocytes % 7.7 %; Neutrophils # 7.7 K/mcL (1.6-8.9); Platelet Count 159 K/mcL (140-400); Red Blood Count 3.49 M/mcL (3.82-4.97); Red Cell Distribution Width 14.6 % (11.5-14.5); Segmented Neutrophils % 79.4 %
[2017-06-24] MEDS: Ketorolac 15 MG/ML VIAL IVP SCH ×3 (05:37→18:20)
[2017-06-24] MEDS: ceFAZolin 1,000 MG in D5% in Water (Mini-Bag+) 100 ML IVPB SCH ×3 (05:38→20:02)
[2017-06-24] MEDS: *HR* Promethazine 25 MG/ML VIAL IVP PRN ×2 (09:20→15:50)
--- NOTE | 2017-06-24 16:51 | General Surgery Progress Note ---
Date of Encounter: 06/24/17 Time of Encounter: 16:45 Subjective Patient reports: nausea Narrative: General Surgery - somewhat depressed today. Pain diminished, but nausea increased Appears more jaundiced today Lungs: Clear, better inspiratory effort. Rales diminished Abdomen: Soft, nontender with active bowel sounds. Drain site clean and dry Urine output described is diminished, 300 mL so far today, dark in color but due to urobilinogen Laboratories: White count 9.7, hemoglobin 9.7 with hematocrit 29.9- diminished H &H related to IV fluids/dilution Bilirubin 5.3 (previously 6.9); direct 4.1, AST 151 (previously 144); ALT 270 (previously 326), alkaline phosphatase 197 (previously 245) Impression: pain diminished - likely due to the catheter exchange yesterday nausea increased - continue to treat symptoms anemia - dilution hyperbilirubinemia - due to common hepatic duct injury during lap magaly - improved with effective percutaneous drainage. Plan: recheck LFTs check BUN/Cr Objective Vital Signs - Last 8 Hours Temp Pulse Resp BP Pulse Ox 06/24/17 15:08 98.7 F 96 16 116/74 98 06/24/17 11:13 98.2 F 90 14 105/69 94 Intake and Output 06/24/17 06/24/17 06/24/17 07:59 15:59 23:59 Intake Total 318 / 318 1360 / 1360 Output Total 400 / 400 925 / 925 Balance -82 / -82 435 / 435 Intake: IV Fluids 318 / 318 880 / 880 0.9 % Sodium Chloride 1, 218 / 218 880 / 880 000 ML @ 75 mls/hr IVC . [id number] [facility] Rx#: [id number] Ancef 1,000 MG In 100 / 100 Dextrose 5% (Minibag+) 100 ML 100 ML @ 200 mls/ hr IVPB Q8H [facility] Rx#: [id number] Oral 0 / 0 480 / 480 Output: Urine 100 / 100 200 / 200 Other 200 / 200 550 / 550 Wound Drainage 100 / 100 175 / 175 Right Upper Abdomen 100 / 100 175 / 175 Other: Meal Lunch Percent of Meal Consumed 25% Weight 103.9 kg Patient Weight 06/24/17 23:59 Weight 103.9 kg - Labs 06/24/17 03:04 06/23/17 04:05 Diabetes panel 06/24/17 Range/Units 03:04 AST 151 H (5-34) Units/L ALT 270 H (0-55) Units/L Alkaline Phosphatase 197 H (38-126) Units/L Albumin 2.2 L (3.5-5.0) g/dL Calcium panel 06/24/17 Range/Units 03:04 Albumin 2.2 L (3.5-5.0) g/dL Adrenal panel 06/24/17 Range/Units 03:04 Total Bilirubin 5.3 H (0.2-1.2) mg/dL AST 151 H (5-34) Units/L ALT 270 H (0-55) Units/L Alkaline Phosphatase 197 H (38-126) Units/L Albumin 2.2 L (3.5-5.0) g/dL - VTE Documentation of Mechanical Device: Intermittent pneumatic compression device Consult Discharge Plan - Plan Referrals: Kofi Viera MD [Primary Care Provider] - Toro Escoto MD [Non-Partnered Physician] -
[2017-06-25] MEDS: *HR* OxyCODONE Immed Rel 5 MG TABLET PO PRN ×3 (00:06→22:35)
[2017-06-25] MEDS: *HR* HYDROmorphone (PF) 1 MG/ML SYRINGE IVP PRN (03:29)
[2017-06-25 03:52] LABS: Alanine Aminotransferase 154 Units/L (0-55); Alkaline Phosphatase 186 Units/L (38-126); Aspartate Amino Transferase 65 Units/L (5-34); BUN/Creatinine Ratio 17 (6-26); Bilirubin,Total 3.3 mg/dL (0.2-1.2); Blood Urea Nitrogen 13 mg/dL (7-20); eGFR For African Americans > 60 (> 60); eGFR For Non-African Americans > 60 (> 60)
[2017-06-25] MEDS: ceFAZolin 1,000 MG in D5% in Water (Mini-Bag+) 100 ML IVPB SCH ×2 (05:37→11:40)
[2017-06-25] MEDS: 0.9 % Sodium Chloride 1,000 ML IVC SCH (07:33)
--- NOTE | 2017-06-25 13:27 | General Surgery Progress Note ---
Date of Encounter: 06/25/17 Time of Encounter: 13:21 Subjective Patient reports: feels better Narrative: General Surgery - POD #9 Patient feeling much improved; nausea resolved. Persisting right flank pain in the area of drain placement. Patient continues to appear icteric though bilirubin has fallen to 3.3. Afebrile, currently 98.0; pulse 87, respirations 18, blood pressure 102/64. SPO2 on room air 98% Lungs: Clear, minimal flank pain with deep inspiration Abdomen: Soft, nontender. Active bowel sounds Percutaneous drain placement appears intact; erythema or cellulitis. Dressing changed. PTC output - 900 mL in the last 24 hours, 1200 mL so far today Laboratories: BUN and creatinine and stable at 13 and 0.76 respectively; total bilirubin 3.3 (previously 5.3) AST 65 (previously 5.1); ALT 154 (previously 270); alkaline phosphatase 186 ( previously 197) Impression: Postoperative day 9, status post laparoscopic cholecystectomy with injury to the common hepatic duct. Accessible placement of PTC drain, traversing the common hepatic duct injury. Hyperbilirubinemia significantly improved with successful placement of the PTC catheter. Plan: Cap the PTC catheter allowing internal drainage only. Uncap if recurrent nausea, worsening abdominal pain, bloating or other symptoms. Objective Vital Signs - Last 8 Hours Temp Pulse Resp BP Pulse Ox 06/25/17 10:50 98 F 87 18 102/64 98 06/25/17 06:40 97.4 F L 77 18 92/55 97 Intake and Output 06/24/17 06/25/17 06/25/17 23:59 07:59 15:59 Intake Total 667 / 667 873 / 873 480 / 480 Output Total 750 / 750 600 / 600 950 / 950 Balance -83 / -83 273 / 273 -470 / -470 Intake: IV Fluids 427 / 427 873 / 873 300 / 300 0.9 % Sodium Chloride 1, 227 / 227 773 / 773 300 / 300 000 ML @ 75 mls/hr IVC . [id number] [facility] Rx#: [id number] Ancef 1,000 MG In 200 / 200 100 / 100 Dextrose 5% (Minibag+) 100 ML 100 ML @ 200 mls/ hr IVPB Q8H [facility] Rx#: [id number] Oral 240 / 240 0 / 0 180 / 180 Output: Urine 125 / 125 250 / 250 100 / 100 Wound Drainage 625 / 625 350 / 350 850 / 850 Right Upper Abdomen 625 / 625 350 / 350 850 / 850 Other: Meal Dinner Percent of Meal Consumed 5% Weight 104.2 kg Patient Weight 06/25/17 23:59 Weight 104.2 kg - Labs 06/24/17 03:04 06/25/17 03:24 Diabetes panel 06/25/17 Range/Units 03:24 BUN 13 (7-20) mg/dL Creatinine 0.76 (0.57-1.11) mg/dL AST 65 H (5-34) Units/L ALT 154 H (0-55) Units/L Alkaline Phosphatase 186 H (38-126) Units/L Pituitary panel 06/25/17 Range/Units 03:24 BUN 13 (7-20) mg/dL Creatinine 0.76 (0.57-1.11) mg/dL Adrenal panel 06/25/17 Range/Units 03:24 BUN 13 (7-20) mg/dL Creatinine 0.76 (0.57-1.11) mg/dL Total Bilirubin 3.3 H (0.2-1.2) mg/dL AST 65 H (5-34) Units/L ALT 154 H (0-55) Units/L Alkaline Phosphatase 186 H (38-126) Units/L - VTE Documentation of Mechanical Device: Intermittent pneumatic compression device Consult Discharge Plan - Plan Referrals: Kofi Viera MD [Primary Care Provider] - Toro Escoto MD [Non-Partnered Physician] -
[2017-06-25] MEDS: cephALEXin 500 MG CAPSULE PO SCH ×2 (14:24→21:12)
[2017-06-26] MEDS: *HR* HYDROmorphone (PF) 1 MG/ML SYRINGE IVP PRN (02:14)
[2017-06-26 04:48] LABS: Hematocrit 31.6 % (35.3-44.9); Hemoglobin 10.4 g/dL (11.5-15.4)
[2017-06-26 05:10] LABS: Bilirubin,Total 2.9 mg/dL (0.2-1.2)
[2017-06-26] MEDS: cephALEXin 500 MG CAPSULE PO SCH (07:36)
[2017-06-26] MEDS: Ondansetron 4 MG/2 ML VIAL IVP PRN (09:30)
[2017-06-26 11:46] VITALS: BP 117/72
--- NOTE | 2017-06-26 14:30 | General Surgery Progress Note ---
Date of Encounter: 06/26/17 Time of Encounter: 14:05 Subjective Narrative: General Surgery - POD #10 progress note / discharge summary Patient feeling well, continues to improve. Early this morning patient complained of increased flank pain unrelieved by pain medication prompting and capping the PTC and resuming external drainage. The pain subsided with this external drainage. The patient has remained afebrile, currently 98.2, pulse 78, respirations 12 , blood pressure 117/72. SPO2 on room air 98% Lungs: Clear, no obvious pain on deep inspiration Cardiac: Regular rate Abdomen: Soft, nontender. PTC catheter intact, surrounding skin and dressing intact without erythema or edema. PTC output: 1200 mL for calendar day 06/25/17 prior to capping; 1500 mL so far today after resuming external drainage. Laboratories: Hemoglobin 10.4, hematocrit 31.6; improved with discontinuation of IV fluids. Total bilirubin has diminished to 2.9, AST 64, ALT 120, alkaline phosphatase 215 Impression: Satisfactory recovery with continued resolution of hyperbilirubinemia following effective percutaneous drainage Plan: Discharge home Check labs 06/28/17 Follow-up office 06/29/17 Maintain external drainage until seen in office Brief history: 36-year-old female admitted, 06/15/17, after presenting to my office with a 3 week history of progressive nausea, anorexia, right upper quadrant abdominal pain and diarrhea. Patient had been recovering from a severe episode of shingles which delayed her presentation with these symptoms. Patient has a known history of cholelithiasis and appeared to be in acute distress related to biliary colic. The patient was admitted to [facility], with plans to complete surgery later that day. Complete historical details are available in a dictated H&P. Hospital course: Patient was admitted to [facility], . Laparoscopic cholecystectomy was completed late that evening/early a.m. of the following day. Postoperatively the patient complained of severe right flank pain and spasms which seemed to progress over the first 24 hours. The patient has a prior history of renal stones but the pain the patient was trying to describe "felt different". White count had normalized but the patient demonstrated an abnormal bilirubin with elevation of LFTs. CT of the abdomen and pelvis demonstrated no evidence of renal stones or hydronephrosis. Fluid was detected within the gallbladder fossa consistent with a postoperative hematoma or seroma along with a minor amount of perihepatic and perisplenic ascites. These findings were suggestive of bile leak. Gastroenterology was consulted, an ERCP was completed 06/17/17, demonstrating a likely injury to the common hepatic or common bile duct. The patient's hyperbilirubinemia and abnormal LFTs increased significantly over the next 24 hours. Initially I made arrangements to transfer the patient to [facility] as it appeared the patient would require a hepaticojejunostomy to repair the bile duct injury. At the patient's request, Dr. Gay was consulted. Per his evaluation, percutaneous transhepatic cholangiogram (PTC) was attempted and successful traversing the injury with the catheter passing into the duodenum. The initial catheter was 10-[place] with effective decompression of the bile duct obstruction. The catheter was exchanged for a 14-[place] catheter on . Over the next several days. The patient's hyperbilirubinemia diminished rapidly and the LFTs also improved. The patient's pain subsided as did her nausea. Patient was deemed appropriate for discharge, 06/26/17. Discharge instructions: Regular diet Patient may shower, wash around the PTC catheter with soap and water Patient to maintain external drainage CBC, LFTs to be obtained on 06/28/17 (prescription provided) Follow-up in the office, 06/29/17; patient to call office to make this appointment Tylenol, ibuprofen, Motrin, Advil, Excedrin as needed for pain Prescription for oxycodone 5 mg, #25, one every 6 hours as needed for pain not controlled by [id number] medications Prescription for ondansetron OTC 4 mg, #20, one every 6 hours as needed for nausea or vomiting. Patient to contact my office or me directly for any increasing pain, fevers, nausea or vomiting, increasing jaundice. Objective Vital Signs - Last 8 Hours Temp Pulse Resp BP Pulse Ox 06/26/17 11:45 98.2 F 78 12 117/72 98 06/26/17 06:41 98.5 F 81 14 112/73 97 Intake and Output 06/25/17 06/26/17 06/26/17 23:59 07:59 15:59 Intake Total 0 / 0 720 / 720 Output Total 0 / 0 1500 / 1500 1200 / 1200 Balance 0 / 0 -1500 / -1500 -480 / -480 Intake: Oral 0 / 0 720 / 720 Output: Urine 1000 / 1000 200 / 200 Wound Drainage 0 / 0 500 / 500 1000 / 1000 Right Upper Abdomen 0 / 0 500 / 500 1000 / 1000 Other: Meal Lunch Percent of Meal Consumed 0% Weight 104.8 kg Patient Weight 06/26/17 23:59 Weight 104.8 kg - Labs 06/26/17 04:35 06/25/17 03:24 Diabetes panel 06/26/17 Range/Units 04:35 AST 64 H (5-34) Units/L ALT 120 H (0-55) Units/L Alkaline Phosphatase 215 H (38-126) Units/L Adrenal panel 06/26/17 Range/Units 04:35 Total Bilirubin 2.9 H (0.2-1.2) mg/dL AST 64 H (5-34) Units/L ALT 120 H (0-55) Units/L Alkaline Phosphatase 215 H (38-126) Units/L - VTE Documentation of Mechanical Device: Intermittent pneumatic compression device Consult Discharge Plan - Plan Referrals: Kofi Viera MD [Primary Care Provider] - Soy Gay DO [Partnered Physician] - 07/03/17 2:15 pm Toro Escoto MD [Non-Partnered Physician] -
--- NOTE | 2017-06-26 14:33 | Discharge Summary ---
Outpatient Proc Discharge Plan - Plan Additional Instructions: Regular diet Patient may shower, wash around PTC catheter with soap and water - replace gauze dressing after each shower Maintain external drainage; measure output and record Tylenol, ibuprofen, Motrin, Advil, etc. as needed for pain Oxycodone 5 mg, #25, one every 6 hours as needed for pain not relieved by over- the-counter medications Ondansetron ODT 4 mg, #20, one every 6 hours as needed for nausea/vomiting CBC and LFTs to be obtained 06/28/17 Follow-up office, 06/29/17; patient to call office to make appointment Patient to contact me immediately if any increasing abdominal pain, fevers, chills, nausea, vomiting, or jaundice Prescriptions: Ondansetron ODT [Zofran ODT] 4 mg SL Q6HR PRN #20 tab.rapdis PRN Reason: nausea or vomiting OxyCODONE Immed Rel [Roxicodone 5 MG] 5 mg PO Q6HR PRN #25 tab PRN Reason: Pain Home Medications: Esomeprazole Magnesium [Nexium] 40 mg PO DAILY 01/31/16 [History] FLUoxetine HCl [Sarafem] 10 mg PO DAILY 01/31/16 [History] Losartan Potassium [Cozaar] 100 mg PO DAILY 01/31/16 [History] Loratadine [Claritin] 10 mg PO DAILY #30 capsule 02/02/17 [Rx] Ondansetron HCl [Zofran] 8 mg PO Q8H PRN 06/15/17 [History] Acetaminophen [Tylenol] 1,000 mg PO Q6HR tab 06/26/17 [Rx] Ondansetron ODT [Zofran ODT] 4 mg SL Q6HR PRN #20 tab.rapdis 06/26/17 [Rx] OxyCODONE Immed Rel [Roxicodone 5 MG] 5 mg PO Q6HR PRN #25 tab 06/26/17 [Rx]
== END 2017-06-26 15:05 | disposition home or self-care (01) | DRG 418 ==
LOC: 3ANU
PROVIDERS: ADMIT Surgery; ATTEND Surgery

== ENCOUNTER 2017-06-28 12:41 | Inpatient (IN) ==
[2017-06-28] MEDS ORDERED: Ondansetron 4 MG/2 ML VIAL IVP PRN (13:19)
[2017-06-28] MEDS ORDERED: Naloxone 0.4 MG/ML INJ IVP PRN (13:19)
[2017-06-28] MEDS ORDERED: *HR* Promethazine 25 MG/ML VIAL IVP PRN (13:19)
[2017-06-28] MEDS ORDERED: *HR* HYDROmorphone (PF) 1 MG/ML SYRINGE IVP PRN (13:24)
[2017-06-28] MEDS ORDERED: Acetaminophen 325 MG TABLET PO PRN (13:24)
[2017-06-28] MEDS ORDERED: *HR* OxyCODONE/APAP 5/325 TABLET PO PRN (13:25)
[2017-06-28] MEDS ORDERED: *HR* OxyCODONE Immed Rel 5 MG TABLET PO PRN (13:33)
--- NOTE | 2017-06-28 13:42 | Event Note ---
Date of Encounter: 06/28/17 Time of Encounter: 13:40 Annmarie Tellez is a 36 year old female who is recently s/p a cholecystectomy with Dr. Escoto on 06/16/17. Her post-operative course has been complicated due to a common hepatic injury. She was seen in the office today for complaints of increasing RUQ pain. Please see complete H&P which has been completed in [facility] today per myself. A copy has been placed in the patient's chart at the nurses station as well in the medical records folder to be scanned into medical records.
[2017-06-28] MEDS: Ketorolac 15 MG/ML VIAL IVP SCH ×3 (15:22→23:00)
[2017-06-28] MEDS: Pantoprazole 40 MG VIAL IVP SCH (15:22)
[2017-06-28] MEDS: 0.9 % Sodium Chloride 1,000 ML IVC SCH (15:22)
[2017-06-28] MEDS ORDERED: 0.9 % Sodium Chloride 1,000 ML IVC ONE (15:54)
[2017-06-28] MEDS: *HR* Heparin 5,000 UNIT/ML VIAL SQ SCH (19:00)
[2017-06-29] MEDS: 0.9 % Sodium Chloride 1,000 ML IVC SCH (02:00)
[2017-06-29] MEDS: *HR* Heparin 5,000 UNIT/ML VIAL SQ SCH (05:23)
[2017-06-29] MEDS: Ketorolac 15 MG/ML VIAL IVP SCH ×2 (05:23→11:10)
[2017-06-29 06:17] LABS: Basophils # 0.1 K/mcL (0.0-0.2); Basophils % 0.5 %; Eosinophils # 0.3 K/mcL (0.0-0.6); Eosinophils % 2.4 %; Hematocrit 34.9 % (35.3-44.9); Lymphocytes # 1.8 K/mcL (0.6-4.6); Lymphocytes % 17.3 %; Mean Corpuscular HGB Conc 32.1 g/dL (31.6-35.5); Mean Corpuscular Hemoglobin 27.4 pg (28.0-33.3); Mean Corpuscular Volume 85.3 fL (83.0-100.0); Mean Platelet Volume 9.9 fL (9.4-12.4); Monocytes # 0.9 K/mcL (0.0-1.3); Monocytes % 8.6 %; Neutrophils # 7.4 K/mcL (1.6-8.9); Platelet Count 435 K/mcL (140-400); Red Blood Count 4.09 M/mcL (3.82-4.97); Red Cell Distribution Width 14.6 % (11.5-14.5); Segmented Neutrophils % 70.2 %
[2017-06-29 06:20] LABS: Hemoglobin 11.2 g/dL (11.5-15.4)
[2017-06-29 06:33] LABS: Alanine Aminotransferase 84 Units/L (0-55); Albumin 2.7 g/dL (3.5-5.0); Albumin/Globulin Ratio 0.6 (1.1-2.2); Alkaline Phosphatase 257 Units/L (38-126); Aspartate Amino Transferase 52 Units/L (5-34); BUN/Creatinine Ratio 23 (6-26); Bilirubin,Direct 1.4 mg/dL (0.0-0.5); Bilirubin,Indirect 0.5 mg/dL (0.0-1.2); Bilirubin,Total 1.9 mg/dL (0.2-1.2); Blood Urea Nitrogen 19 mg/dL (7-20); Calcium 9.2 mg/dL (8.6-10.8); Carbon Dioxide 19 mEq/L (19-29); Chloride 109 mEq/L (98-109); Globulin 4.6 g/dL (2.4-3.5); Glucose 117 mg/dL (70-99); Osmolality,Calculated 285 (280-300); Potassium 3.8 mEq/L (3.5-4.5); Sodium 136 mEq/L (136-145); Total Protein 7.3 g/dL (6.0-8.3); eGFR For African Americans > 60 (> 60); eGFR For Non-African Americans > 60 (> 60)
[2017-06-29] MEDS: Pantoprazole 40 MG VIAL IVP SCH (08:31)
[2017-06-29 11:18] VITALS: BP 104/68
--- NOTE | 2017-06-29 11:32 | Discharge Summary ---
Date of Encounter: 06/29/17 Time of Encounter: 10:00 - Discharge Diagnosis (1) Abdominal pain Priority: Primary Status: Resolved Qualifiers: Abdominal location: right upper quadrant Qualified Code(s): R10.11 - Right upper quadrant pain (2) Bile duct injury Priority: Primary Status: Acute Qualifiers: Encounter type: subsequent encounter Qualified Code(s): S36.13XD - Injury of bile duct, subsequent encounter (3) Status post cholecystectomy Priority: Secondary Status: Acute (4) Dehydration Priority: Secondary Status: Resolved - Discharge Medications Prescriptions: Ketorolac [Toradol] 10 mg PO Q4HR #30 tablet OxyCODONE Immed Rel [Roxicodone 5 MG] 2.5 mg PO Q6HR PRN #20 tablet PRN Reason: Pain Home Medications: Esomeprazole Magnesium [Nexium] 40 mg PO DAILY 01/31/16 [History] FLUoxetine HCl [Sarafem] 10 mg PO DAILY 01/31/16 [History] Losartan Potassium [Cozaar] 100 mg PO DAILY 01/31/16 [History] Loratadine [Claritin] 10 mg PO DAILY #30 capsule 02/02/17 [Rx] Ondansetron ODT [Zofran ODT] 4 mg SL Q6HR PRN #20 tab.rapdis 06/26/17 [Rx] Ketorolac [Toradol] 10 mg PO Q4HR #30 tablet 06/29/17 [Rx] OxyCODONE Immed Rel [Roxicodone 5 MG] 2.5 mg PO Q6HR PRN #20 tablet 06/29/17 [Rx ] Allergies/Adverse Reactions: Allergies No Known Allergies Allergy (Verified 05/07/17 10:31) General Surgery Exam Initial Vital Signs Temp Pulse Resp BP Pulse Ox 97.9 F 107 16 114/79 98 06/28/17 13:46 06/28/17 13:46 06/28/17 13:46 06/28/17 13:46 06/28/17 13:46 - General physical appearance well developed, well nourished, no distress - Eyes normal ocular movement - ENT normal mucosa, atraumatic, normocephalic - Neck trachea midline - Respiratory normal respiratory effort, clear to auscultation - Cardiovascular Cardiovascular exam: Present: RRR - Abdomen Abdomen general surgery: Present: bowel sounds present, soft, tender, wound ( PTC drain with bilious drainage noted) Abdominal Tenderness: Present: RUQ - Incision Incision: Present: clean and dry, intact - Integumentary Integumentary general surgery: Present: warm and dry - Neurologic Present: CN 2-12 grossly intact - Musculoskeletal Present: normal gait - Psychiatric Psychiatric general surgery: Present: appropriate, oriented to person, oriented to place, oriented to time, speech is normal, memory intact Date of admission: 06/28/17 13:57 Primary care physician: PCP NONE Consults: 06/28/17 14:18 Consult to Invasive Line Access Team [CONS] Routine Reason for Consult: limited vascular access Line Type: EPIV Discharging clinician: Soy Altman [facility]) Anticipated date of discharge: 06/29/17 - Patient Status Disposition: Home, Self-Care Condition: Good Functional capacity at discharge: independent ambulation Overall status at discharge: patient is progressing back to baseline - Discharge Instructions Follow Up With: NONE,PCP [Primary Care Provider] - Soy Gay DO [Partnered Physician] - 07/03/17 2:15 pm Additional Instructions: #1 may shower, no tub bath or swimming until cleared per surgeon #2 wash incisions with soap and water and pat dry daily #3 no lifting, pushing, pulling more than 15 pounds for the next 2 weeks #4 no driving until off narcotics for 24 hours and able to safely react in the car #5 may climb stairs Empty the right upper quadrant drain 3-4 times daily and as needed if more than half full. - Diet and Activity Activity: increase activity as tolerated Diet: advance to your usual diet - Hospital Course Hospital course: Ms. Tellez is a 36 year old female who is status post cholecystectomy with bile duct injury. She reported to the office this yesterday with increasing right upper quadrant abdominal pain, tachycardia, poor appetite. She was admitted to the hospital for further workup and evaluation. She was given IV fluids for rehydration. She did have a CT scan of her abdomen complete which shows no acute changes from previous CT. Her PTC drain is following much better today after gentle flushing yesterday. She states her right upper quadrant pain has improved. She does have improved appetite. Her vital signs are stable and she is afebrile. Her tachycardia has resolved. We will begin discharge planning to home with oral Toradol and oxycodone. Patient instructed to follow up as planned with Dr. Gay 07/03/2017. - Time Spent with Patient Total time spent providing and/or coordinating discharge services: Less than 30 minutes Labs on day of discharge: Labs from last 24 hours 06/29/17 06/29/17 06:07 06:07 WBC 10.6 RBC 4.09 Hgb 11.2 L D Hct 34.9 L MCV 85.3 MCH 27.4 L MCHC 32.1 RDW 14.6 H Plt Count 435 H MPV 9.9 Immature Gran % 1.0 Seg Neutrophils % 70.2 Lymphocytes % 17.3 Monocytes % 8.6 Eosinophils % 2.4 Basophils % 0.5 Neutrophils # 7.4 Lymphocytes # 1.8 Monocytes # 0.9 Eosinophils # 0.3 Basophils # 0.1 Sodium 136 Potassium 3.8 Chloride 109 Carbon Dioxide 19 BUN 19 Creatinine 0.82 Est GFR ( Amer) > 60 Est GFR (Non-Af Amer) > 60 BUN/Creatinine Ratio 23 Glucose 117 H Calculated Osmolality 285 Calcium 9.2 Total Bilirubin 1.9 H Direct Bilirubin 1.4 H Indirect Bilirubin 0.5 AST 52 H ALT 84 H Alkaline Phosphatase 257 H Serum Total Protein 7.3 Albumin 2.7 L Globulin 4.6 H Albumin/Globulin Ratio 0.6 L - Impressions ITS Impressions Abdomen CT 06/28/17 13:27 IMPRESSION: Interval improvement in small right effusion and right base atelectasis. Small gallbladder fossa fluid collection likely postoperative. Internal external biliary drain is in excellent position. D/ / Steve Kraft MD / Steve rKaft MD Interpreting Provider: Steve Kraft MD Chest X-Ray 06/28/17 13:32 IMPRESSION: Minimal linear atelectasis at the lung bases. Otherwise no acute abnormality. D/ / Caio Spain MD / Caio Spian MD Interpreting Provider: Caio Spain MD - Attending Attestation For this encounter, I have reviewed the [employer] or PA documentation, treatment plan, and medical decision making; and I have had face to face time with this patient.
== END 2017-06-29 12:55 | disposition home or self-care (01) | DRG 392 ==
LOC: 3ANU
PROVIDERS: ADMIT Surgery; ATTEND Surgery

== ENCOUNTER 2017-07-06 10:54 | Inpatient (IN) ==
[2017-07-06] MEDS ORDERED: Ondansetron 4 MG/2 ML VIAL IVP PRN (11:00)
[2017-07-06] MEDS ORDERED: Naloxone 0.4 MG/ML INJ IVP PRN (11:00)
[2017-07-06] MEDS ORDERED: Ondansetron 4 MG/2 ML VIAL IVP STA (11:07)
[2017-07-06] MEDS ORDERED: *HR* Promethazine 25 MG/ML VIAL IVP STA (11:07)
--- NOTE | 2017-07-06 11:40 | General Surg History&Physical ---
Date of Encounter: 07/06/17 Time of Encounter: 11:38 Assessment and Plan (1) Vomiting of fecal matter Current Visit: Yes Status: Acute The assessment and plan as outlined above was discussed with the patient and/or family members who expressed understanding and agreement. All questions were answered. Concern for ileus NPO, could consider NG placement if she continues to vomit despite NPO Supportive care including IVF, antiemetics, GI prophylaxis STAT CBC, CMP, and UA with reflux to cultre Will obtain Acute abdominal series and hold off on CT of abdomen/pelvis and NG tubing pending findings and clinical course Consideration for home IV hydration pending clinical course. CHRISTIANO Bruce aware for planning if indicated. Qualifiers: Nausea presence: with nausea Qualified Code(s): R11.13 - Vomiting of fecal matter (2) Dehydration Current Visit: Yes Status: Acute See plan above Bolus 2L NS over 2 hours, then maintenance at 100 MLs per hour Recheck BMP at 1800 today (3) Bile leak, postoperative Current Visit: Yes Status: Chronic The assessment and plan as outlined above was discussed with the patient and/or family members who expressed understanding and agreement. All questions were answered. Continue PTC drain in addition to plan outlined above (4) Status post cholecystectomy Current Visit: Yes Status: Chronic See plan above History of Present Illness Chief complaint: Vomiting stool and abdominal pain HPI: Ms. Tellez is a 36 year old female with a significant recent and complex history of laparoscopic cholecystectomy with possible injury to common bile duct that required a drain placement. She was readmitted on 06/28/2017 for nausea increasing right upper quadrant pain, tachycardia, and poor appetite. She was given IV fluids for rehydration and a CT of her abdomen at that time showed no acute changes from previous CT. Her PTC drain output improved and she was released. She notified our office of increased nausea that started two days ago for which Zofran was not effective and she was given scopolamine patch. She reports the nausea has worsened and she began vomiting yesterday. She reports that even sips of water caused her to vomit and she is now vomiting foul-smelling material which she reports as smelling like stool. James also reports that yesterday she tried to drink and ensure and she vomited that up and also felt as though she saw ensure drain into her PTC drain back. She denies fevers or chills. She denies association with anyone else who has been ill. She denies diarrhea. She endorses constipation. She denies chest pain, shortness of breath, black bloody or tarry stools, dizziness, or lightheadedness. She is tearful stating, "something is wrong. I just need to get well. I just can't take this anymore." She reports adherence to her treatment regimen of medications at home including anti-emetics, PPI, and comfort control, Past Med Surg Social Fam HX - Past Medical History Source: patient Medical history: GERD, hypertension, other Psychiatric history: anxiety, depression - Past Surgical History Surgical History: cholecystectomy (and PTC drain placement) - Social History Smoking Status: Never smoker Smokeless Tobacco Status: No Alcohol use: occasionally Drug use: none - Family History Mother Living Status: Still Living Hx Family Cardiac Disorders: No Hx Family Respiratory Disorders: No Hx Family Cancer: Yes (melnoma) Hx Family GI Disorders: No Hx Family Endocrine Disorder: No Hx Family Neuromuscular Disorders: No Hx Family Neurologic Disorders: No Hx Family HEENT Disorders: No Hx Family Autoimmune Disorders: No Father History Unknown: Yes Medications and Allergies Esomeprazole Magnesium [Nexium] 40 mg PO DAILY 01/31/16 [History] Losartan Potassium [Cozaar] 100 mg PO DAILY 01/31/16 [History] Ondansetron ODT [Zofran ODT] 4 mg SL Q6HR PRN #20 tab.rapdis 06/26/17 [Rx] Cholecalciferol (D-3) [Vitamin D] 5,000 unit PO DAILY 07/06/17 [History] FLUoxetine HCl [PROzac] 20 mg PO BID 07/06/17 [History] 3 Allergy/AdvReac Type Severity Reaction Status Date / Time No Known Allergies Allergy Verified 05/07/17 10:31 Review of Systems All systems PM: A 10-system review of systems was performed and is negative for pertinent findings except as documented above in the HPI. General Surgery [facility] - General physical appearance well developed, moderate distress, moderate pain, jaundice - Eyes normal ocular movement - ENT dry mucosa, atraumatic, normocephalic - Neck trachea midline - Respiratory normal expansion, normal respiratory effort, clear to auscultation - Cardiovascular Cardiovascular exam: Present: RRR - Abdomen Abdomen general surgery: Present: distended, tender, wound (No drainage around PTC noted; Drain bag is full with brown, thick material). Absent: bowel sounds present (Bowel sounds are absent) Hernia: Present: none - Incision Incision: Present: clean and dry, intact - Integumentary Integumentary general surgery: Present: warm and dry, other (Tenting noted) - Neurologic Present: CN 2-12 grossly intact - Musculoskeletal Present: normal gait, normal posture (Slightly slumped posture; states feeling ill) - Psychiatric Psychiatric general surgery: Present: A&Ox3, tearful Results - Labs 07/06/17 12:22 07/06/17 13:24 All other labs normal. - Imaging Additional studies: Abdomen X-Ray 07/06/17 11:04 IMPRESSION: Nonobstructive bowel gas pattern. D/ / Guillermo Oviedo MD / Guillermo Oviedo MD Interpreting Provider: Guillermo Oviedo MD
[2017-07-06] MEDS ORDERED: Pantoprazole 40 MG VIAL IVP ONE (12:26)
[2017-07-06 12:31] LABS: Basophils # 0.1 K/mcL (0.0-0.2); Basophils % 0.9 %; Eosinophils # 0.3 K/mcL (0.0-0.6); Eosinophils % 2.2 %; Hematocrit 39.9 % (35.3-44.9); Hemoglobin 13.3 g/dL (11.5-15.4); Immature Granulocytes % 0.6 % (0-4); Lymphocytes # 2.3 K/mcL (0.6-4.6); Lymphocytes % 17.9 %; Mean Corpuscular HGB Conc 33.3 g/dL (31.6-35.5); Mean Corpuscular Hemoglobin 27.2 pg (28.0-33.3); Mean Corpuscular Volume 81.6 fL (83.0-100.0); Mean Platelet Volume 9.6 fL (9.4-12.4); Monocytes # 0.6 K/mcL (0.0-1.3); Monocytes % 4.9 %; Platelet Count 621 K/mcL (140-400); Red Blood Count 4.89 M/mcL (3.82-4.97); Red Cell Distribution Width 15.2 % (11.5-14.5); Segmented Neutrophils % 73.5 %
[2017-07-06] MEDS: 0.9 % Sodium Chloride 1,000 ML IVC SCH ×3 (12:49→16:11)
[2017-07-06 12:59] LABS: Neutrophils # 9.3 K/mcL (1.6-8.9)
[2017-07-06 14:00] LABS: Albumin 3.4 g/dL (3.5-5.0); Albumin/Globulin Ratio 0.7 (1.1-2.2); Bilirubin,Total 1.6 mg/dL (0.2-1.2); Calcium 9.4 mg/dL (8.6-10.8); Globulin 4.7 g/dL (2.4-3.5); Potassium 5.3 mEq/L (3.5-4.5); Total Protein 8.1 g/dL (6.0-8.3)
[2017-07-06] MEDS: *HR* Promethazine 25 MG/ML VIAL IVP SCH ×3 (16:12→23:03)
[2017-07-06] MEDS: Famotidine 20 MG/2 ML VIAL IVP SCH (16:13)
[2017-07-06 16:46] LABS: Bilirubin,Urine Negative (Negative); Blood,Urine Negative (Negative); Clarity,Urine Cloudy (Clear); Color,Urine Yellow (Yellow); Glucose,Urine (UA) Normal (Normal); Ketones,Urine Negative (Negative); Leukocyte Esterase,Urine Negative (Negative); Nitrite,Urine Negative (Negative); PH,Urine 5.5 pH Units (5.0-8.0); Protein,Urine 30 mg/dL (Neg-Trace); Specific Gravity,Urine 1.017 (1.010-1.025); Urobilinogen,Urine Normal (Normal)
[2017-07-06 16:49] LABS: Bacteria,Urine Few per hpf (None-Few); Hyaline Casts,Urine Few per lpf (None-Few); Squamous Epithelial Cell,Urine Many per lpf (None-Few)
[2017-07-06 16:59] LABS: RBC,Urine 0-3 per hpf (0-3)
[2017-07-06] MEDS ORDERED: Famotidine 20 MG/2 ML VIAL IVP SCH (18:00)
[2017-07-06 18:55] LABS: Potassium 4.4 mEq/L (3.5-4.5)
[2017-07-06] MEDS ORDERED: 0.9 % Sodium Chloride 1,000 ML IVC ONE (19:07)
[2017-07-06] MEDS: Bisacodyl 10 MG RECTAL SUPPOSITORY RC SCH (23:03)
[2017-07-07] MEDS: 0.9 % Sodium Chloride 1,000 ML IVC SCH ×2 (02:15→15:57)
[2017-07-07] MEDS: Famotidine 20 MG/2 ML VIAL IVP SCH ×2 (05:33→18:25)
[2017-07-07] MEDS: *HR* Promethazine 25 MG/ML VIAL IVP SCH ×5 (05:33→19:27)
[2017-07-07 07:28] LABS: Basophils # 0.1 K/mcL (0.0-0.2); Basophils % 0.9 %; Eosinophils # 0.2 K/mcL (0.0-0.6); Eosinophils % 2.4 %; Hematocrit 35.2 % (35.3-44.9); Hemoglobin 11.2 g/dL (11.5-15.4); Immature Granulocytes % 0.2 % (0-4); Lymphocytes % 23.3 %; Mean Corpuscular HGB Conc 31.8 g/dL (31.6-35.5); Mean Corpuscular Hemoglobin 27.5 pg (28.0-33.3); Mean Corpuscular Volume 86.3 fL (83.0-100.0); Mean Platelet Volume 9.6 fL (9.4-12.4); Monocytes # 0.6 K/mcL (0.0-1.3); Neutrophils # 5.8 K/mcL (1.6-8.9); Platelet Count 447 K/mcL (140-400); Red Blood Count 4.08 M/mcL (3.82-4.97); Red Cell Distribution Width 13.7 % (11.5-14.5); Segmented Neutrophils % 66.2 %
[2017-07-07 07:31] LABS: Albumin/Globulin Ratio 0.8 (1.1-2.2); Bilirubin,Total 1.3 mg/dL (0.2-1.2); Calcium 8.8 mg/dL (8.6-10.8); Globulin 3.6 g/dL (2.4-3.5); Potassium 4.3 mEq/L (3.5-4.5); Total Protein 6.6 g/dL (6.0-8.3)
[2017-07-07] MEDS: Bisacodyl 10 MG RECTAL SUPPOSITORY RC SCH (08:39)
--- NOTE | 2017-07-07 15:10 | General Surgery Progress Note ---
Date of Encounter: 07/07/17 Time of Encounter: 09:30 - Assessment and Plan (1) Acute kidney injury Current Visit: Yes Status: Acute patient Cr improved, uOP improved, continue IVF hydration (2) Abdominal pain Current Visit: No Status: Acute improving, prn pain control Qualifiers: Abdominal location: right upper quadrant Qualified Code(s): R10.11 - Right upper quadrant pain (3) Dehydration Current Visit: Yes Status: Acute improving, continue ivf hydration (4) Nausea and vomiting Current Visit: Yes Status: Acute prn antiemetics, improved continue regular diet Qualifiers: Vomiting type: unspecified Vomiting Intractability: non-intractable Qualified Code(s): R11.2 - Nausea with vomiting, unspecified Subjective Patient reports: feels better, still having pain, pain is less, tolerating liquids well, voiding w/o difficulty, flatus, no bowel movement, nausea Objective Vital Signs - Last 8 Hours Temp Pulse Resp BP Pulse Ox 07/07/17 12:25 97.9 F 70 15 117/66 98 07/07/17 07:54 97.7 F 70 18 104/67 97 Intake and Output 07/06/17 07/07/17 07/07/17 23:59 07:59 15:59 Intake Total 1000 / 1000 1000 / 1000 611 / 611 Output Total 1100 / 1100 / 1950 / 1950 Balance -100 / -100 975 / 975 -1339 / -1339 Intake: IV Fluids 1000 / 1000 1000 / 1000 491 / 491 0.9 % Sodium Chloride 1, 1000 / 1000 1000 / 1000 491 / 491 000 ML @ 100 mls/hr IVC . Q10H [facility] Rx#:[id number] Oral 0 / 0 0 / 0 120 / 120 Output: Urine 0 / 0 300 / 300 Other 350 / 350 Wound Drainage 750 / 750 25 / 25 1650 / 1650 Right Abdomen 750 / 750 25 / 25 1650 / 1650 Other: Meal NPO Lunch Percent of Meal Consumed 0% 10% # Voids 1 Weight 71.4 kg Blood Glucose* 86 90 Patient Weight 07/07/17 23:59 Weight 71.4 kg - General physical appearance well nourished, no distress - Eyes PERRL, normal ocular movement - ENT normal mucosa, normocephalic - Neck Neck exam: trachea midline - Respiratory normal expansion, clear to auscultation - Cardiovascular Cardiovascular exam: Present: RRR - Abdomen Abdomen: Present: bowel sounds present, soft, tender. Absent: guarding, rebound Abdominal Tenderness: RUQ - Integumentary no rash, no growths - Neurologic CN 2-12 grossly intact - Musculoskeletal normal gait, normal posture - Psychiatric oriented to time, oriented to person, memory intact - Labs 07/07/17 07:08 07/07/17 07:08 Short CBC 07/07/17 Range/Units 07:08 WBC 8.7 (4.3-11.1) K/mcL Hgb 11.2 L D (11.5-15.4) g/dL Hct 35.2 L (35.3-44.9) % Plt Count 447 H (140-400) K/mcL Neutrophils # 5.8 (1.6-8.9) K/mcL BMP 07/07/17 07/06/17 Range/Units 07:08 18:30 Sodium 137 131 L (136-145) mEq/L Potassium 4.3 4.4 (3.5-4.5) mEq/L Chloride 113 H 105 (98-109) mEq/L Carbon Dioxide 20 19 (19-29) mEq/L BUN 36 H 45 H (7-20) mg/dL Creatinine 1.84 H 2.96 H (0.57-1.11) mg/dL Glucose 92 88 (70-99) mg/dL Calcium 8.8 9.0 (8.6-10.8) mg/dL Liver Function 07/07/17 Range/Units 07:08 Total Bilirubin 1.3 H (0.2-1.2) mg/dL AST 55 H (5-34) Units/L ALT 91 H (0-55) Units/L Alkaline Phosphatase 261 H (38-126) Units/L Albumin 3.0 L (3.5-5.0) g/dL Urine 07/06/17 Range/Units 16:17 Urine Color Yellow (Yellow) Urine Clarity Cloudy A (Clear) Urine pH 5.5 (5.0-8.0) pH Units Ur Specific [place] 1.017 (1.010-1.025) Urine Protein 30 H (Neg-Trace) mg/dL Urine Glucose (UA) Normal (Normal) mg/dL Vital Signs Temp Pulse Resp BP Pulse Ox 07/07/17 12:25 97.9 F 70 15 117/66 98 07/07/17 07:54 97.7 F 70 18 104/67 97 07/07/17 05:12 97.9 F 70 18 103/66 97 07/07/17 01:08 98.2 F 72 18 103/70 97 07/06/17 20:35 97.9 F 83 14 131/62 99 07/06/17 16:09 93/61 Intake and Output 07/06/17 07/07/17 07/07/17 23:59 07:59 15:59 Intake Total 1000 / 1000 1000 / 1000 611 / 611 Output Total 1100 / 1100 25 / 25 1950 / 1950 Balance -100 / -100 975 / 975 -1339 / -1339 Intake: IV Fluids 1000 / 1000 1000 / 1000 491 / 491 0.9 % Sodium Chloride 1, 1000 / 1000 1000 / 1000 491 / 491 000 ML @ 100 mls/hr IVC . Q10H [facility] Rx#:[id number] Oral 0 / 0 0 / 0 120 / 120 Output: Urine 0 / 0 300 / 300 Other 350 / 350 Wound Drainage 750 / 750 25 / 25 1650 / 1650 Right Abdomen 750 / 750 25 / 25 1650 / 1650 Other: Meal NPO Lunch Percent of Meal Consumed 0% 10% # Voids 1 Weight 71.4 kg Blood Glucose* 86 90 Patient Weight 07/07/17 23:59 Weight 71.4 kg Consult Discharge Plan - Plan Referrals: NONE,PCP [Primary Care Provider] -
[2017-07-08] MEDS: *HR* Promethazine 25 MG/ML VIAL IVP SCH ×6 (00:26→20:59)
[2017-07-08] MEDS: 0.9 % Sodium Chloride 1,000 ML IVC SCH ×2 (04:26→16:04)
[2017-07-08] MEDS: Famotidine 20 MG/2 ML VIAL IVP SCH ×2 (05:48→18:55)
[2017-07-08] MEDS: *HR* HYDROmorphone (PF) 1 MG/ML SYRINGE IVP PRN ×3 (06:42→20:58)
[2017-07-08 07:45] LABS: Basophils # 0.1 K/mcL (0.0-0.2); Basophils % 0.8 %; Eosinophils # 0.2 K/mcL (0.0-0.6); Eosinophils % 3.1 %; Hematocrit 29.9 % (35.3-44.9); Immature Granulocytes % 0.5 % (0-4); Lymphocytes # 1.7 K/mcL (0.6-4.6); Lymphocytes % 27.3 %; Mean Corpuscular HGB Conc 31.8 g/dL (31.6-35.5); Mean Corpuscular Hemoglobin 27.1 pg (28.0-33.3); Mean Corpuscular Volume 85.2 fL (83.0-100.0); Monocytes # 0.5 K/mcL (0.0-1.3); Neutrophils # 3.7 K/mcL (1.6-8.9); Platelet Count 374 K/mcL (140-400); Red Blood Count 3.51 M/mcL (3.82-4.97); Red Cell Distribution Width 13.9 % (11.5-14.5); Segmented Neutrophils % 60.3 %
[2017-07-08 07:54] LABS: BUN/Creatinine Ratio 21 (6-26); Calcium 8.2 mg/dL (8.6-10.8); Carbon Dioxide 19 mEq/L (19-29); Chloride 115 mEq/L (98-109); Glucose 94 mg/dL (70-99); Osmolality,Calculated 291 (280-300); Potassium 3.8 mEq/L (3.5-4.5); Sodium 139 mEq/L (136-145); eGFR For African Americans > 60 (> 60); eGFR For Non-African Americans > 60 (> 60)
[2017-07-08 07:58] LABS: Blood Urea Nitrogen 22 mg/dL (7-20)
[2017-07-08 08:15] LABS: Hemoglobin 9.5 g/dL (11.5-15.4)
--- NOTE | 2017-07-08 13:01 | General Surgery Progress Note ---
Date of Encounter: 07/08/17 Time of Encounter: 12:59 - Assessment and Plan (1) Acute kidney injury Current Visit: Yes Status: Acute patient Cr continues to improve, decrease ivf hydration continue regular diet (2) Abdominal pain Current Visit: No Status: Acute improving, prn pain control Qualifiers: Abdominal location: right upper quadrant Qualified Code(s): R10.11 - Right upper quadrant pain (3) Dehydration Current Visit: Yes Status: Acute improving, will plan home care with fluid hydration throughout the week (4) Nausea and vomiting Current Visit: Yes Status: Acute continue antiemetics as she is continually nauseated but promethazine really helps Qualifiers: Vomiting type: unspecified Vomiting Intractability: non-intractable Qualified Code(s): R11.2 - Nausea with vomiting, unspecified Subjective Patient reports: still having pain (minimal at best), tolerating a regular diet , voiding w/o difficulty, nausea (continual) Objective Vital Signs - Last 8 Hours Temp Pulse Resp BP Pulse Ox 07/08/17 11:13 97.5 F L 73 16 112/64 99 07/08/17 07:55 97.9 F 70 14 113/71 98 Intake and Output 07/07/17 07/08/17 07/08/17 23:59 07:59 15:59 Intake Total 0 / 0 1000 / 1000 702 / 702 Output Total 325 / 325 850 / 850 425 / 425 Balance -325 / -325 150 / 150 277 / 277 Intake: IV Fluids 1000 / 1000 462 / 462 0.9 % Sodium Chloride 1, 1000 / 1000 462 / 462 000 ML @ 100 mls/hr IVC . Q10H [facility] Rx#:[id number] Oral 0 / 0 0 / 0 240 / 240 Output: Urine 250 / 250 300 / 300 Wound Drainage 325 / 325 600 / 600 125 / 125 Right Abdomen 325 / 325 600 / 600 125 / 125 Other: Meal Breakfast Percent of Meal Consumed 20% # Voids 1 Weight 71.3 kg Patient Weight 07/08/17 23:59 Weight 71.3 kg - General physical appearance well developed, well nourished, no distress - Eyes PERRL, normal ocular movement - ENT normal mucosa, normocephalic - Neck Neck exam: trachea midline - Respiratory normal expansion, normal respiratory effort - Cardiovascular Cardiovascular exam: Present: RRR - Abdomen Abdomen: Present: bowel sounds present, soft, non tender Additional Comments: PTCD with bilious drainage - Integumentary no rash, no growths - Neurologic CN 2-12 grossly intact - Musculoskeletal normal posture - Psychiatric oriented to time, memory intact - Labs 07/08/17 06:17 07/08/17 06:17 Short CBC 07/08/17 Range/Units 06:17 WBC 6.2 (4.3-11.1) K/mcL Hgb 9.5 L D (11.5-15.4) g/dL Hct 29.9 L (35.3-44.9) % Plt Count 374 (140-400) K/mcL Neutrophils # 3.7 (1.6-8.9) K/mcL BMP 07/08/17 Range/Units 06:17 Sodium 139 (136-145) mEq/L Potassium 3.8 (3.5-4.5) mEq/L Chloride 115 H (98-109) mEq/L Carbon Dioxide 19 (19-29) mEq/L BUN 22 H D (7-20) mg/dL Creatinine 1.03 (0.57-1.11) mg/dL Glucose 94 (70-99) mg/dL Calcium 8.2 L (8.6-10.8) mg/dL Vital Signs Temp Pulse Resp BP Pulse Ox 07/08/17 11:13 97.5 F L 73 16 112/64 99 07/08/17 07:55 97.9 F 70 14 113/71 98 07/08/17 00:32 97.4 F L 80 18 101/61 96 07/07/17 21:32 98.0 F 80 18 108/68 99 Intake and Output 07/07/17 07/08/17 07/08/17 23:59 07:59 15:59 Intake Total 0 / 0 1000 / 1000 702 / 702 Output Total 325 / 325 850 / 850 425 / 425 Balance -325 / -325 150 / 150 277 / 277 Intake: IV Fluids 1000 / 1000 462 / 462 0.9 % Sodium Chloride 1, 1000 / 1000 462 / 462 000 ML @ 100 mls/hr IVC . Q10H [facility] Rx#:[id number] Oral 0 / 0 0 / 0 240 / 240 Output: Urine 250 / 250 300 / 300 Wound Drainage 325 / 325 600 / 600 125 / 125 Right Abdomen 325 / 325 600 / 600 125 / 125 Other: Meal Breakfast Percent of Meal Consumed 20% # Voids 1 Weight 71.3 kg Patient Weight 07/08/17 23:59 Weight 71.3 kg Consult Discharge Plan - Plan Referrals: NONE,PCP [Primary Care Provider] -
[2017-07-09] MEDS: *HR* Promethazine 25 MG/ML VIAL IVP SCH ×6 (00:37→20:53)
[2017-07-09] MEDS: 0.9 % Sodium Chloride 1,000 ML IVC SCH ×2 (04:20→12:20)
[2017-07-09] MEDS: Famotidine 20 MG/2 ML VIAL IVP SCH ×2 (04:21→17:33)
[2017-07-09] MEDS: *HR* HYDROmorphone (PF) 1 MG/ML SYRINGE IVP PRN ×2 (04:23→22:23)
--- NOTE | 2017-07-09 15:27 | General Surgery Progress Note ---
Date of Encounter: 07/09/17 Time of Encounter: 15:45 - Assessment and Plan (1) Dehydration Current Visit: Yes Status: Acute 2/2 nausea and vomiting. Continue IV fluids at 83 ml/hour. She will require aprox 2L of IV hydration daily. Dc planning with home health and 2L IV bolus of 0.9 NS daily. Will d/c home with left powerglide in place. Continue PRN antiemetics, zofran and prmethazine No need to repeat labs as creatinine has normalized. Ambulate as tolerated (2) Acute kidney injury Current Visit: Yes Status: Acute 2/2 above. Creatinine is 1.37 today. See plan above. (3) Vomiting of fecal matter Current Visit: Yes Status: Acute Will trial clamp PTC for 4 hours today. May unclamp if having severe nausea or pain. Continue stool softeners Qualifiers: Nausea presence: with nausea Qualified Code(s): R11.13 - Vomiting of fecal matter (4) Bile leak, postoperative Current Visit: Yes Status: Chronic See plan above (5) Status post cholecystectomy Current Visit: Yes Status: Resolved Subjective Patient reports: no new complaints, still having pain, pain is less, tolerating liquids well, voiding w/o difficulty, flatus, bowel movement, nausea Narrative: Annmarie reports feeling nauseated, but somewhat better. She is tolerating some liquids, but reports the particles drain into her PTC bag. She reports BM today and notes that she had refused suppositories. She is accepting of p.o. stool softeners. Objective Vital Signs - Last 8 Hours Temp Pulse Resp BP Pulse Ox 07/09/17 14:52 98.6 F 90 16 98/63 98 07/09/17 10:25 97.9 F 74 16 103/65 98 07/09/17 08:00 97 Intake and Output 07/08/17 07/09/17 07/09/17 23:59 07:59 15:59 Intake Total 1360 / 1360 1000 / 1000 360 / 360 Output Total 1050 / 1050 1150 / 1150 725 / 725 Balance 310 / 310 -150 / -150 -365 / -365 Intake: IV Fluids 1000 / 1000 1000 / 1000 0.9 % Sodium Chloride 1, 1000 / 1000 1000 / 1000 000 ML @ 50 mls/hr IVC . Q20H [facility] Rx#:[id number] Oral 360 / 360 0 / 0 360 / 360 Output: Urine 400 / 400 950 / 950 400 / 400 Other 25 / 25 Wound Drainage 625 / 625 200 / 200 325 / 325 Right Abdomen 625 / 625 200 / 200 325 / 325 Other: Meal Dinner Lunch Percent of Meal Consumed 75% 5% # Bowel Movements 0 0 - General physical appearance well developed, no distress, moderate pain - Eyes normal ocular movement - ENT atraumatic, normocephalic - Neck Neck exam: trachea midline - Respiratory normal expansion, normal respiratory effort, clear to auscultation - Cardiovascular Cardiovascular exam: Present: RRR - Abdomen Abdomen: Present: bowel sounds present, soft, tender, wound (PTC drain site clean and intact. Drainging thing brown liquid) - Integumentary no rash - Neurologic CN 2-12 grossly intact - Musculoskeletal normal gait, normal posture - Psychiatric oriented to time, oriented to person, oriented to place, speech is normal, memory intact - Labs 07/08/17 06:17 07/08/17 06:17 Consult Discharge Plan - Plan Referrals: NONE,PCP [Primary Care Provider] - Prescriptions: 0.9 % Sodium Chloride 2,000 ml IV BOLUS #30 iv.soln
[2017-07-10] MEDS: 0.9 % Sodium Chloride 1,000 ML IVC SCH ×3 (00:24→11:56)
[2017-07-10] MEDS: *HR* Promethazine 25 MG/ML VIAL IVP SCH ×3 (00:25→07:41)
[2017-07-10] MEDS: Famotidine 20 MG/2 ML VIAL IVP SCH (05:53)
--- NOTE | 2017-07-10 10:11 | Discharge Summary ---
Date of Encounter: 07/10/17 Time of Encounter: 10:00 - Discharge Diagnosis (1) Acute kidney injury Priority: Primary Status: Resolved (2) Dehydration Priority: Primary Status: Resolved (3) Abdominal pain Priority: Secondary Status: Resolved Qualifiers: Abdominal location: right upper quadrant Qualified Code(s): R10.11 - Right upper quadrant pain (4) Status post cholecystectomy Priority: Secondary Status: Resolved (5) Bile duct injury Priority: Secondary Status: Acute Qualifiers: Encounter type: subsequent encounter Qualified Code(s): S36.13XD - Injury of bile duct, subsequent encounter (6) Nausea and vomiting Priority: Secondary Status: Acute Qualifiers: Vomiting type: unspecified Vomiting Intractability: non-intractable Qualified Code(s): R11.2 - Nausea with vomiting, unspecified - Discharge Medications Prescriptions: Promethazine [Phenergan] 25 mg PO Q6HR PRN #30 tablet PRN Reason: Nausea 0.9 % Sodium Chloride 2,000 ml IV BOLUS #30 iv.soln Home Medications: Esomeprazole Magnesium [Nexium] 40 mg PO DAILY 01/31/16 [History] Losartan Potassium [Cozaar] 100 mg PO DAILY 01/31/16 [History] Ondansetron ODT [Zofran ODT] 4 mg SL Q6HR PRN #20 tab.rapdis 06/26/17 [Rx] Cholecalciferol (D-3) [Vitamin D] 5,000 unit PO DAILY 07/06/17 [History] FLUoxetine HCl [Prozac] 20 mg PO BID 07/06/17 [History] 0.9 % Sodium Chloride 2,000 ml IV BOLUS #30 iv.soln 07/09/17 [Rx] Promethazine [Phenergan] 25 mg PO Q6HR PRN #30 tablet 07/10/17 [Rx] Allergies/Adverse Reactions: 3 Allergy/AdvReac Type Severity Reaction Status Date / Time No Known Allergies Allergy Verified 05/07/17 10:31 General Surgery Exam Initial Vital Signs Temp Pulse Resp BP Pulse Ox 97.2 F L 89 15 88/62 96 07/06/17 12:36 07/06/17 12:36 07/06/17 12:36 07/06/17 12:36 07/06/17 12:36 - General physical appearance well developed, well nourished, no distress - Eyes normal ocular movement - ENT normal mucosa, atraumatic, normocephalic - Neck trachea midline - Respiratory normal respiratory effort, clear to auscultation - Cardiovascular Cardiovascular exam: Present: RRR - Abdomen Abdomen general surgery: Present: bowel sounds present, soft, tender (RUQ around drain tube), wound (PTC drain clamped, no surrounding erythema or induration) - Incision Incision: Present: clean and dry, intact - Integumentary Integumentary general surgery: Present: warm and dry - Neurologic Present: CN 2-12 grossly intact - Musculoskeletal Present: normal gait, normal posture - Psychiatric Psychiatric general surgery: Present: appropriate, oriented to person, oriented to place, oriented to time, speech is normal, memory intact Date of admission: 07/07/17 15:06 Primary care physician: PCP NONE Consults: 07/06/17 11:40 Consult to Invasive Line Access Team [CONS] Routine Reason for Consult: poor access Line Type: EPIV 07/06/17 12:31 Consult to Nutrition [CONS] Routine Comment: pt has lost 20lbs since gallbladder sx in may Consulting Provider: NUTRITION Reason for Dietary Consult: PO Supplementation 07/07/17 15:05 Consult to Barista [CONS] Routine Reason for SW Consult: plan DC early next week, potentially sunday with home care likely M, W, F for IVF administration due to severe dehydration Discharging clinician: Soy Gay ([facility]) Anticipated date of discharge: 07/10/17 - Patient Status Disposition: Home Health Service Condition: Good Functional capacity at discharge: independent ambulation Overall status at discharge: patient is progressing back to baseline - Discharge Instructions Follow Up With: NONE,PCP [Primary Care Provider] - Soy Gay DO [Partnered Physician] - 07/17/17 1:50 pm (hospital follow-up) Additional Instructions: PTC drain- cleanse around the tube with soap and water daily in the shower and pat dry. Apply split 4 x 4 gauze and tape to secure. Continue to keep drain clamped as long as tolerating without increase in pain. May place back to drain bag if experiencing increasing pain. Infuse 2 Liters of normal saline through power glide IV per home health care Powerglide- follow protocol for management of IV - Diet and Activity Activity: increase activity as tolerated Diet: advance to your usual diet - Hospital Course Hospital course: Ms. Tellez is a 36 year old female who is recently status post a cholecystectomy with Dr. Escoto. Her postoperative course has been complicated by a bile duct injury. She was admitted to the hospital with severe dehydration, nausea and vomiting, and acute kidney injury. Her symptoms have improved with IV hydration. Her kidney function has returned to normal. She is tolerating a diet without nausea or vomiting, antiemetics are helping to control symptoms (phenergan). Her vital signs are stable and she is afebrile. Her PTC drain has been clamped and she is tolerating this without any increase in pain. We will begin discharge planning to home. We will continue to keep her PTC drain and clamped at this time. She will receive IV infusions for hydration at home - Time Spent with Patient Total time spent providing and/or coordinating discharge services: Less than 30 minutes - Impressions ITS Impressions Abdomen X-Ray 07/06/17 11:04 IMPRESSION: Nonobstructive bowel gas pattern. D/ / Guillermo Oviedo MD / Guillermo Oviedo MD Interpreting Provider: Guillermo Oviedo MD
--- NOTE | 2017-07-10 10:35 | Physician Discharge Referral ---
Home Health/Hosp Referral Info Transfer to: Home Health Attending Provider: Dr. Iggy Gay Provider in Charge Post Discharge: Other (Dr. Iggy Gay) - Diagnosis (1) Acute kidney injury Priority: Primary Status: Resolved (2) Dehydration Priority: Primary Status: Resolved (3) Abdominal pain Priority: Secondary Status: Resolved (4) Status post cholecystectomy Priority: Secondary Status: Resolved (5) Bile duct injury Priority: Secondary Status: Acute (6) Nausea and vomiting Priority: Secondary Status: Acute - Respiratory Orders None - Dressing/Wound Care Site: #1 RUQ PTC drain #2 Powerglide IV Type of Dressing/Treatments w/Frequency: #1 PTC drain- cleanse around the tube with soap and water daily in the shower and pat dry. Apply split 4 x 4 gauze and tape to secure. Continue to keep drain clamped as long as tolerating without increase in pain. May place back to drain bag if experiencing increasing pain. #2 Powerglide- follow protocol for management of IV - Diet/Nutrition Diet/Nutrition Orders: Regular - Activity Activity Orders: Up ad ken, Ambulate - Services Needed Following services are medically necessary services: Longterm Care Orders: PTC drain- cleanse around the tube with soap and water daily in the shower and pat dry. Apply split 4 x 4 gauze and tape to secure. Continue to keep drain clamped as long as tolerating without increase in pain. May place back to drain bag if experiencing increasing pain. Infuse 2 Liters of normal saline through power glide IV per home health care Powerglide- follow protocol for management of IV - Transfer Medications Prescriptions: Promethazine [Phenergan] 25 mg PO Q6HR PRN #30 tablet PRN Reason: Nausea 0.9 % Sodium Chloride 2,000 ml IV BOLUS #30 iv.soln Home Medications: Esomeprazole Magnesium [Nexium] 40 mg PO DAILY 01/31/16 [History] Losartan Potassium [Cozaar] 100 mg PO DAILY 01/31/16 [History] Ondansetron ODT [Zofran ODT] 4 mg SL Q6HR PRN #20 tab.rapdis 06/26/17 [Rx] Cholecalciferol (D-3) [Vitamin D] 5,000 unit PO DAILY 07/06/17 [History] FLUoxetine HCl [Prozac] 20 mg PO BID 07/06/17 [History] 0.9 % Sodium Chloride 2,000 ml IV BOLUS #30 iv.soln 07/09/17 [Rx] Promethazine [Phenergan] 25 mg PO Q6HR PRN #30 tablet 07/10/17 [Rx] Allergies/Adverse Reactions: 3 Allergy/AdvReac Type Severity Reaction Status Date / Time No Known Allergies Allergy Verified 05/07/17 10:31 Certification: Further, I certify that my clinical findings support that this patient is homebound (i.e. absences from home require considerable and taxing effort and are for medical reasons or baptism services or infrequently or short duration when for other reasons) because: Homebound Reason: Patient requires assistance of a person or device to safely leave home, Leaving home requires considerable and taxing effort due to condition Attestation: My signature below is to certify that this patient is under my care and that I, or nurse practitioner, or a physician's judicial administrative assistant working with me, has a face-to -face encounter with this patient.
[2017-07-10 10:44] VITALS: BP 107/73
== END 2017-07-10 13:38 | disposition home health service (06) | DRG 684 ==
LOC: 3ANU
PROVIDERS: ADMIT Surgery; ATTEND Surgery

== ENCOUNTER 2018-03-31 09:28 | Observation (INO) ==
[2018-03-31] MEDS: 0.9 % Sodium Chloride 1,000 ML IVC SCH (11:30)
[2018-04-01] MEDS: 0.9 % Sodium Chloride 1,000 ML IVC SCH ×2 (03:25→20:06)
[2018-04-01] MEDS ORDERED: Ondansetron 4 MG/2 ML VIAL IVP PRN (08:43)
[2018-04-01 09:23] LABS: Basophils # 0.1 K/mcL (0.0-0.2); Basophils % 0.8 %; Eosinophils # 0.4 K/mcL (0.0-0.6); Eosinophils % 5.9 %; Hematocrit 41.3 % (35.3-44.9); Hemoglobin 13.5 g/dL (11.5-15.4); Immature Granulocytes % 0.3 % (0-4); Lymphocytes # 2.3 K/mcL (0.6-4.6); Lymphocytes % 30.9 %; Mean Corpuscular HGB Conc 32.7 g/dL (31.6-35.5); Mean Corpuscular Hemoglobin 28.5 pg (28.0-33.3); Mean Corpuscular Volume 87.3 fL (83.0-100.0); Mean Platelet Volume 10.4 fL (9.4-12.4); Monocytes # 0.4 K/mcL (0.0-1.3); Monocytes % 5.7 %; Neutrophils # 4.2 K/mcL (1.6-8.9); Platelet Count 308 K/mcL (140-400); Red Blood Count 4.73 M/mcL (3.82-4.97); Red Cell Distribution Width 13.6 % (11.5-14.5); Segmented Neutrophils % 56.4 %
--- NOTE | 2018-04-01 09:41 | General Surgery Progress Note ---
Date of Encounter: 04/01/18 Time of Encounter: 09:15 - Assessment and Plan (1) Biliary obstruction Current Visit: Yes Status: Acute Full liquids NPO after midnight PTC drain out Check hepatic panel Supportive care Will likely plan for discharge if labs are stable and patient pain free Plan for outpatient ERCP with Dr. Bai in the upcoming days Cancel cholangiogram with IR planned for 04/02/18 Subjective Patient reports: no new complaints, feels better, tolerating liquids well (full liquids), voiding w/o difficulty, flatus, afebrile Objective Vital Signs - Last 8 Hours Temp Pulse Resp BP Pulse Ox 04/01/18 07:15 97.8 F 70 16 120/82 99 04/01/18 03:13 98 F 86 14 116/67 96 Intake and Output 03/31/18 04/01/18 04/01/18 23:59 07:59 15:59 Intake Total 1080 / 1080 1350 / 1350 Output Total 750 / 750 200 / 200 Balance 330 / 330 1150 / 1150 Intake: IV Fluids 950 / 950 0.9 % Sodium Chloride 1,000 ML 950 / 950 @ 60 mls/hr IVC .[id number] [facility] Rx #:[id number] Oral 1080 / 1080 400 / 400 Output: Urine 650 / 650 200 / 200 Wound Drainage 100 / 100 Right Lower 100 / 100 Other: Meal Dinner npo # Bowel Movements 0 Weight 96.4 kg Patient Weight 04/01/18 23:59 Weight 96.4 kg - General physical appearance well developed, well nourished, no distress - Eyes normal ocular movement - ENT normal mucosa, atraumatic, normocephalic - Neck Neck exam: trachea midline - Respiratory normal respiratory effort, clear to auscultation - Cardiovascular Cardiovascular exam: Present: RRR - Abdomen Abdomen: Present: bowel sounds present, soft, non tender, wound (RUQ with drain site (tube no longer within the tract)) - Integumentary no rash, no growths, no abnormal pigmentation - Neurologic CN 2-12 grossly intact - Musculoskeletal normal gait, normal posture - Psychiatric oriented to time, oriented to person, oriented to place, speech is normal, memory intact - Labs 04/01/18 09:01 04/01/18 09:01 Consult Discharge Plan - Plan Referrals: Kofi Viera MD [Primary Care Provider] - - Attending Attestation For this encounter, I have reviewed the CRIMPER OPERATOR or PA documentation, treatment plan, and medical decision making; and I have had face to face time with this patient.
[2018-04-01 09:42] LABS: Alanine Aminotransferase 71 Units/L (7-52); Albumin 3.7 g/dL (3.5-5.7); Albumin/Globulin Ratio 1.2 (1.1-2.2); Alkaline Phosphatase 615 Units/L (34-104); Aspartate Amino Transferase 42 Units/L (13-39); BUN/Creatinine Ratio 18 (6-26); Bilirubin,Direct 0.5 mg/dL (0.0-0.2); Bilirubin,Indirect 0.7 mg/dL (0.0-1.2); Bilirubin,Total 1.2 mg/dL (0.3-1.0); Blood Urea Nitrogen 11 mg/dL (6-20); Calcium 9.1 mg/dL (8.6-10.3); Carbon Dioxide 25 mEq/L (23-29); Chloride 108 mEq/L (98-107); Glucose 91 mg/dL (70-105); Osmolality,Calculated 287 (280-300); Sodium 139 mEq/L (136-145); Total Protein 6.7 g/dL (6.4-8.9); eGFR For African Americans > 60 (> 60); eGFR For Non-African Americans > 60 (> 60)
--- NOTE | 2018-04-01 21:24 | Anesthesia Evaluation PreOp ---
Date of Encounter: 04/01/18 Time of Encounter: 21:02 - Past History Planned Operation: ERCP possible CBD stent Cardiac History: HTN Pulmonary History: Denies Any Significant HX ALCOHOLISM WORKER History: Denies Any Significant HX Other Medical History: GERD, Other (Chronic biliary leak and drain since May 2017. Recurrent nausea, vomiting, diarrhea, right upper quadrant pain. Increased biliary drainage recently, and accidental drain removal 03/31.) Anesthesia History: No Prior Anesthetic Complications, Past Anesthesia ( Cholecystectomy, ERCP, multiple biliary drains) Alcohol Use: occasionally Drug use: none Medications and Allergies Esomeprazole Magnesium [Nexium] 40 mg PO DAILY 01/31/16 [History] Losartan Potassium [Cozaar] 100 mg PO DAILY 01/31/16 [History] FLUoxetine HCl [Prozac] 20 mg PO BID 07/06/17 [History] 3 Allergy/AdvReac Type Severity Reaction Status Date / Time No Known Allergies Allergy Verified 03/31/18 14:32 - Meds/Allergy Pre-op Review Medications Reviewed: Yes Allergies Reviewed: Yes Beta Blockers on Current Med List: No Anesthesia Results - Labs 04/01/18 09:01 04/01/18 09:01 Laboratory Tests 04/01/18 09:01 Calcium 9.1 Total Bilirubin 1.2 H Direct Bilirubin 0.5 H AST 42 H ALT 71 H Alkaline Phosphatase 615 H Serum Total Protein 6.7 Albumin 3.7 Anesthesia Exam Vital Signs/O2 Sat, Most Current Temp Pulse Resp BP Pulse Ox 98.1 F 70 14 129/81 99 04/01/18 20:44 04/01/18 20:44 04/01/18 20:44 04/01/18 20:44 04/01/18 20:44 Height: 1.7 m Weight: 96 kg BMI: 33 NPO: Planned NPO after MN - HEENT Mallampati: II Teeth: Normal Oral Opening: Greater than 3 - ALCOHOLISM WORKER LOC: Oriented - Cardiac Rhythm: Regular - Pulmonary Breath Sounds: bilateral Clear Respiratory Effort: Symmetrical Anesthesia Assess/Plan ASA Score: 3 Modified Everett Scale for Level of Consciousness: Cooperative, oriented, and tranquil Anesthetic Plan: General Monitoring Plan: Standard Monitors Recovery Plan: PACU Anes Supervising Prov Stmt: Patient informed and consented. Risks, benefits, and alternatives discussed. Patient wishes to proceed.
[2018-04-02] MEDS ORDERED: Lidocaine -MPF 2% 2 ML VIAL ONE (11:29)
[2018-04-02] MEDS ORDERED: *HR* Propofol 200 MG/20 ML VIAL IVP ONE ×2 (11:29→11:42)
[2018-04-02] MEDS ORDERED: Ondansetron 4 MG/2 ML VIAL ONE (11:29)
[2018-04-02] MEDS ORDERED: *HR* Succinylcholine 200 MG/10 ML VIAL IVP ONE (11:29)
[2018-04-02] MEDS ORDERED: Ondansetron 4 MG/2 ML VIAL IVP PRN (12:31)
[2018-04-02] MEDS ORDERED: Indomethacin 50 MG SUPP.RECT RC ONE (13:10)
--- NOTE | 2018-04-02 14:19 | Gastroenterology Consult Note ---
<Nicole Meng M - Last Filed: 04/02/18 14:16> Date of Encounter: 04/02/18 Time of Encounter: 10:15 - Assessment and plan (1) Bile duct injury Status: Acute Assessment and plan: 37 year old female who had bile duct injury following cholecystectomy. She is status post multple PTCs per IR. LFTs remain elevated. She needs ERCP with possible stent placement. She likely has stricture from injury and is at risk for infection. Pt verbalizes understanding and is in agreement. Qualifiers: Encounter type: subsequent encounter Qualified Code(s): S36.13XD - Injury of bile duct, subsequent encounter - Time Spent With Patient Total time spent is greater than 50% in coordination of care (as documented) at patient's floor/unit and/or counseling patient: GI History of Present Illness - Data of Consult Patient: known to practice within the last 3 years Consult date: 04/02/18 Requesting Physician: Soy Gay DO - Consult Narrative Reason for consult: biliary stricture History of present illness: Ms. Tellez is a 37 year old female who had complex history of laparoscopic cholecystectomy with injury to common bile duct. Since that times she has had multiple PTCs per interventional radiology. All external drains have since been removed. She denies any abdominal pain, nausea, vomiting at this time. She denies fever, chills. She denies diarrhea, constipation or bloody stools. Past Med Surg Social Fam HX - Past Medical History Medical history: hypertension Psychiatric history: anxiety, depression - Past Surgical History Surgical History: cholecystectomy - Social History Smoking Status: Never smoker Smokeless Tobacco Status: No Alcohol use: occasionally Drug use: none - Family History Mother Living Status: Still Living Hx Family Cardiac Disorders: No Hx Family Respiratory Disorders: No Hx Family Cancer: Yes (melnoma) Hx Family GI Disorders: No Hx Family Endocrine Disorder: No Hx Family Neuromuscular Disorders: No Hx Family Neurologic Disorders: No Hx Family HEENT Disorders: No Hx Family Autoimmune Disorders: No Review of Systems: GI: as per [place] GENERAL: denies fever or chills EYES: denies yellow discoloration ENT: denies pain with swallowing or difficulty swallowing CARDIO: denies chest pain, palpitations RESP: No Shortness of breath with exertion : denies change in color of urine NEURO: denies any weakness HEME: Denies any bruising MS: denies joint pain, joint swelling or back pain. DERM: denies rash or itching PSYCH: history of anxiety and depression - Constitutional Vitals: Temp Pulse Resp BP Pulse Ox 97.5 F L 68 16 156/78 100 04/02/18 13:56 04/02/18 14:06 04/02/18 14:06 04/02/18 14:06 04/02/18 14:06 Exam: CONSTITUTIONAL:~alert, no acute distress.~HEAD:~normocephalic.~EYES:~no jaundice.~NECK:~no obvious swelling.~HEART:~regular rate and rhythm, no murmurs. ~LUNGS:~bilateral good air entry.~ABDOMEN:~non distended, soft, tender RUQ area , no masses palpable, no organomegaly, laproscopic incision sites intact, dressing to previous drain site dry and intact.~RECTAL EXAM:~Deferred.~ EXTREMITIES:~no clubbing, cyanosis or edema.~SKIN:~no stigmata of chronic liver disease.~NEUROLOGIC:~no obvious focal defect.~~~~ Results - Labs CBC & Chem 7: 04/01/18 09:01 04/01/18 09:01 Labs: Last Result Calcium 9.1 mg/dL (8.6-10.3) 04/01/18 09:01 Entire Visit Hgb 13.5 g/dL (11.5-15.4) 04/01/18 09:01 Hct 41.3 % (35.3-44.9) 04/01/18 09:01 Total Bilirubin 1.2 mg/dL (0.3-1.0) H 04/01/18 09:01 AST 42 Units/L (13-39) H 04/01/18 09:01 ALT 71 Units/L (7-52) H 04/01/18 09:01 - Impressions Impressions Cath/Invasive Procedure 04/02/18 12:05 IMPRESSION: Intraoperative fluoroscopy provided. Please refer to the procedure report for further details. D/ / Manjit Chatterjee MD / Manjit Chatterjee MD Interpreting Provider: Manjit Chatterjee MD Consult Discharge Plan - Plan Instructions: Acute Nausea and Vomiting (DC) Referrals: Kofi Viera MD [Primary Care Provider] - (Patient prefers to make her own appt. thank you) Shirley Bai MD [Partnered Physician] - (4 weeks Web Request entered and office will call patient at home with date and time of appt. thank you) <Shirley Bai - Last Filed: 04/03/18 11:43> Date of Encounter: 04/02/18 Time of Encounter: 12:00 - Time Spent With Patient Total time spent is greater than 50% in coordination of care (as documented) at patient's floor/unit and/or counseling patient: GI History of Present Illness - Data of Consult Requesting Physician: Soy Gay DO - Consult Narrative History of present illness: Ms. Tellez is a 37 year old female - Constitutional Vitals: Temp Pulse Resp BP Pulse Ox 98.2 F 73 14 133/83 98 04/03/18 06:44 04/03/18 06:44 04/03/18 06:44 04/03/18 06:44 04/03/18 06:44 Results - Labs CBC & Chem 7: 04/01/18 09:01 04/01/18 09:01 Labs: Last Result Calcium 9.1 mg/dL (8.6-10.3) 04/01/18 09:01 Entire Visit Hgb 13.5 g/dL (11.5-15.4) 04/01/18 09:01 Hct 41.3 % (35.3-44.9) 04/01/18 09:01 Total Bilirubin 1.1 mg/dL (0.3-1.0) H 04/03/18 05:51 AST 36 Units/L (13-39) 04/03/18 05:51 ALT 55 Units/L (7-52) H 04/03/18 05:51 - Impressions Impressions Cath/Invasive Procedure 04/02/18 12:05 IMPRESSION: Intraoperative fluoroscopy provided. Please refer to the procedure report for further details. D/ / Manjit Chatterjee MD / Manjit Chattereje MD Interpreting Provider: Manjit Chatterjee MD - Attending Attestation I have personally performed a face to face evaluation on this patient. I have reviewed and agree with the care plan. History and Exam by me shows: Patient seen denies any abdominal pain. Patient with a history of common hepatic duct injuryduring gallbladder surgery now with a stricture. Multiple PTCs done along with dilation of the stricture. Now PTC catheter is out and patient still has elevated alkaline phosphatase along with a bilirubin. Recommendation: Case discussed with Dr. Gay patient to have a ERCP to evaluate the stricture and possible placement of biliary stent.
[2018-04-02] MEDS: 0.9 % Sodium Chloride 1,000 ML IVC SCH ×2 (14:27→15:27)
--- NOTE | 2018-04-02 15:58 | Anesthesia Evaluation Post Op ---
Date of Encounter: 04/02/18 Time of Encounter: 15:58 - Vital Signs Vital Signs: Vital Signs/O2 Sat, Most Current Temp Pulse Resp BP Pulse Ox 98.0 F 80 15 148/99 97 04/02/18 15:29 04/02/18 15:29 04/02/18 15:29 04/02/18 15:29 04/02/18 15:29 - Lungs Lungs: Clear Ascult./Percussion - Airway Airway: Non-obstructed - Cardiovascular Regular Rate - Mental Status Mental Status: Alert & Oriented, Answers Appropriately - Pain Pain Scale: 0 Pain Scale used: Numeric (1 - 10) - Nausea Vomiting Nausea Vomiting: Not Present - Hydration Hydration: Tolerates oral liquids - Discharge PostOp Status: Transfer Patient to floor Attestation: I have assessed this patient and find they meet discharge criteria.
--- NOTE | 2018-04-02 16:37 | General Surgery Progress Note ---
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 The common bile duct was dilated. Two temporary stents were placed across the stricture into the R intrahepatic system. - Will recheck LFTs labs in morning. - Regular diet - Zofran for nausea. - Supportive care - Will likely plan for discharge tomorrow if labs are stable and patient pain free. - Qualifiers: Encounter type: subsequent encounter Qualified Code(s): S36.13XD - Injury of bile duct, subsequent encounter Subjective Narrative: Patient denies any abdominal pain, nausea, or vomiting. Admits to having bowel movements. Denies any melena or hematochezia. Denies any chest pain or shortness of breath. Objective VITAL SIGNS: Reviewed. See [facility] GENERAL: no apparent distress. HEENT: [Normocephalic, PER, EOMi, oropharynx pink/moist, no JVD noted.] CV: b/l rad pulses 2+, RRR, no murmurs or gallops, no JVD RESPIRATORY: CTAB without wheezes, rales, or rhonchi ABD: soft, non-tender, no rebound/guarding/rigidity, no peritoneal signs EXTREMITY: grossly normal motor function, no pedal edema, peripheral pulses 2+ b /l NEUROLOGIC EXAM: AOx3, obeys commands, no speech deficits. PSYCHIATRIC: normal mood and affect SKIN: no gross lesions, rashes, or skin changes Vital Signs - Last 8 Hours Temp Pulse Resp BP Pulse Ox 04/02/18 15:29 98.0 F 80 15 148/99 97 04/02/18 15:00 66 14 140/81 99 04/02/18 14:29 97.5 F L 66 14 134/83 100 04/02/18 14:28 97.5 F L 61 14 134/83 100 04/02/18 14:06 68 16 156/78 100 04/02/18 13:56 97.5 F L 65 16 156/74 100 04/02/18 13:46 76 16 152/88 100 04/02/18 13:36 69 16 146/75 100 04/02/18 13:26 97.5 F L 88 16 144/87 99 04/02/18 11:31 71 16 159/85 99 04/02/18 10:40 97.8 F 69 14 116/75 99 Intake and Output 04/02/18 04/02/18 04/02/18 07:59 15:59 23:59 Intake Total 1000 / 1000 Output Total 300 / 300 200 / 200 Balance -300 / -300 800 / 800 Intake: IV Fluids 1000 / 1000 0.9 % Sodium Chloride 1,000 ML 1000 / 1000 @ 60 mls/hr IVC .[id number] [facility] Rx #:[id number] Oral 0 / 0 Output: Urine 300 / 300 200 / 200 Other: Meal NPO Percent of Meal Consumed 0% Blood Glucose* 86 - Labs 04/01/18 09:01 04/01/18 09:01 Consult Discharge Plan - Plan Referrals: Kofi Viera MD [Primary Care Provider] -
[2018-04-03 06:48] VITALS: BP 133/83
[2018-04-03 06:49] LABS: Albumin 3.3 g/dL (3.5-5.7); Albumin/Globulin Ratio 1.3 (1.1-2.2); Bilirubin,Direct 0.4 mg/dL (0.0-0.2); Bilirubin,Indirect 0.7 mg/dL (0.0-1.2); Bilirubin,Total 1.1 mg/dL (0.3-1.0); Globulin 2.5 g/dL (2.4-3.5); Total Protein 5.8 g/dL (6.4-8.9)
[2018-04-03] MEDS: 0.9 % Sodium Chloride 1,000 ML IVC SCH (07:00)
--- NOTE | 2018-04-03 10:08 | Discharge Summary ---
Date of Encounter: 04/03/18 Time of Encounter: 09:30 - Discharge Diagnosis (1) Biliary obstruction Priority: Primary Status: Resolved General Surgery Exam Initial Vital Signs Temp Pulse Resp BP Pulse Ox 98.0 F 71 14 124/82 94 03/31/18 10:09 03/31/18 10:09 03/31/18 10:09 03/31/18 10:09 03/31/18 10:09 - General physical appearance well developed, well nourished, no distress, no pain - Eyes normal ocular movement - ENT normal mucosa, atraumatic, normocephalic - Neck trachea midline - Respiratory normal expansion, normal respiratory effort, clear to auscultation - Cardiovascular Cardiovascular exam: Present: RRR - Abdomen Abdomen general surgery: Present: bowel sounds present, soft, non tender, wound (drain site healed without drainage; no erythema or induration) - Integumentary Integumentary general surgery: Present: warm and dry - Neurologic Present: CN 2-12 grossly intact - Musculoskeletal Present: normal gait, normal posture - Psychiatric Psychiatric general surgery: Present: appropriate, oriented to person, oriented to place, oriented to time, speech is normal, memory intact - Hospital Course Hospital course: Ms. Tellez is a 37 year old female presents to the hospital with a biliary obstruction. She was admitted to the hospital and started on supportive measures including bowel rest and IV fluids. Gastroenterology was consulted for an ERCP. Dr. Bai was able to perform an ERCP and placed 2 temporary stents. The patient's liver function tests are trending towards normal. She has no abdominal pain. She is tolerating a regular diet without nausea or vomiting. Her vital signs are stable and she is afebrile. We will begin discharge planning to home and plan for outpatient follow-up in the upcoming weeks. - Time Spent with Patient Total time spent providing and/or coordinating discharge services: Less than 30 minutes - Discharge Medications Home Medications: Esomeprazole Magnesium [Nexium] 40 mg PO DAILY 01/31/16 [History] Losartan Potassium [Cozaar] 100 mg PO DAILY 01/31/16 [History] FLUoxetine HCl [Prozac] 20 mg PO BID 07/06/17 [History] Allergies/Adverse Reactions: 3 Allergy/AdvReac Type Severity Reaction Status Date / Time No Known Allergies Allergy Verified 03/31/18 14:32 Date of admission: 03/31/18 09:33 Primary care physician: Kofi Virea MD Consults: 04/02/18 11:57 Consult to Gastroenterology [CONS] Routine Consulting Provider: Gastroenterology Steph Reason for Consult: Biliary obstruction; Dr. Bai notified 04/01/[address] Gay Call Completed: Yes Discharging clinician: Soy Gay ([facility]) Anticipated date of discharge: 04/03/18 Labs on day of discharge: Labs from last 24 hours 04/03/18 04/02/18 04/02/18 05:51 11:26 06:00 POC Glucose 75 86 Total Bilirubin 1.1 H Direct Bilirubin 0.4 H Indirect Bilirubin 0.7 AST 36 ALT 55 H Alkaline Phosphatase 561 H Serum Total Protein 5.8 L Albumin 3.3 L Globulin 2.5 Albumin/Globulin Ratio 1.3 - Impressions ITS Impressions Cath/Invasive Procedure 04/02/18 12:05 IMPRESSION: Intraoperative fluoroscopy provided. Please refer to the procedure report for further details. D/ / Manjit Chatterjee MD / Manjit Chatterjee MD Interpreting Provider: Manjit Chatterjee MD - Patient Status Disposition: Home, Self-Care Condition: Good Functional capacity at discharge: independent ambulation Overall status at discharge: patient is back to baseline - Discharge Instructions Follow Up With: Kofi Viera MD [Primary Care Provider] - Shirley Bai MD [Partnered Physician] - (4 weeks) - Diet and Activity Activity: increase activity as tolerated Diet: advance to your usual diet - Attending Attestation For this encounter, I have reviewed the [employer] or PA documentation, treatment plan, and medical decision making; and I have had face to face time with this patient.
--- NOTE | 2018-04-03 12:30 | Event Note ---
Date of Encounter: 04/03/18 Time of Encounter: 09:45 Pt awake in bed talking with surgery. She denies any abdominal pain, nausea or vomiting. She tolerated breakfast this am without difficulty. She is status post ERCP with temporary stent placement. Dr Bai is to refer her to the [facility] for severe biliary stricture. Will follow as an outpatient.
== END 2018-04-03 11:06 | disposition home or self-care (01) ==
LOC: 3ANU
PROVIDERS: ADMIT Surgery; ATTEND Surgery